=== PATIENT | female | born 1945 | race Caucasian/White ===

== ENCOUNTER 2020-09-10 11:43 | Outpatient (NON) | payer MEDICARE, SELFPAY ==
[2020-09-10 12:15] LABS: Basophils Absolute Auto 0.02 K/mm3 (0.00-0.10); Basophils Percent Auto 0.2 % (0.0-1.0); Hemoglobin 11.4 g/dL (11.7-13.8); Immature Granulocyte Absolute 0.11 K/mm3 (0.00-0.00); Immature Granulocyte Percent A 1.1 % (0.0-0.0); Lymphocytes Absolute Auto 1.22 K/mm3 (1.10-4.50); Lymphocytes Percent Auto 11.8 % (18.0-42.0); Mean Corpuscular HGB Conc 30.8 g/dL (32.0-36.0); Mean Corpuscular Hemoglobin 27.5 pg (27.0-31.0); Mean Corpuscular Volume 89.4 fL (78.0-102.0); Mean Platelet Volume 9.2 fl (9.2-11.8); Monocytes Absolute Auto 0.26 K/mm3 (0.10-0.90); Monocytes Percent Auto 2.5 % (2.0-11.0); Neutrophils Absolute Auto 8.7 K/mm3 (1.7-7.2); Neutrophils Percent Auto 84.4 % (50.0-70.0); Nucleated Red Blood Cells Absolute Auto 0.02 K/mm3 (0.00-0.00); Nucleated Red Blood Cells Perc 0.2 % (0-0.0); Platelet Count Result 343 K/mm3 (150-420); Red Blood Count 4.14 M/mm3 (4.20-5.40); Red Cell Distribution Width 18.3 % (11.6-14.4); White Blood Count 10.3 K/mm3 (4.8-10.8)
[2020-09-10 12:47] LABS: Alanine Aminotransferase 30 U/L (14-59); Albumin Level 2.9 g/dL (3.4-5.0); Alkaline Phosphatase 80 U/L (46-116); Anion Gap 5 mmol/L (8-16); Aspartate Amino Transferase 24 U/L (15-37); Bilirubin,Total 0.4 mg/dL (0.00-1.00); Blood Urea Nitrogen 44 mg/dL (7-18); Calcium 8.8 mg/dL (8.5-10.1); Carbon Dioxide 32 mmol/L (21-32); Chloride 98 mmol/L (98-108); Cholesterol 201 mg/dL (0-200); Estimated Glomerular Filt Rate 36; Glucose 104 mg/dL (70-99); HDL Direct 103 mg/dL (40-60); LDL Cholesterol Calculated 88 mg/dL (<130); Osmolality Calculated 291 mOsm/kg (285-295); Potassium 5.1 mmol/L (3.5-5.1); Sodium 135 mmol/L (136-145); Total Protein 6.1 g/dL (6.4-8.2); Triglycerides 49 mg/dL (0-150)
[2020-09-13 11:58] LABS: Vitamin D 25 Hydroxy 28 ng/mL (30-100)
== END 2020-09-10 11:44 ==
PROVIDERS: Visit Provider Nurse Practitioner Family
DX: Z79.899 Other long term (current) drug therapy (principal); I10 Essential (primary) hypertension
CPT/HCPCS: 36415; 80053; 80061; 82306; 85025

== ENCOUNTER 2020-11-04 11:06 | Inpatient (IN) | payer MEDICARE, MEDICAID, SELFPAY ==
--- NOTE | ~2020-11-04 | MR_ITS ---
EXAMINATION: MR brain/brain stem wo con DATE: 11/06/2020 09:56 INDICATION: Mental status change. TECHNIQUE: Magnetic resonance imaging (MRI) of the brain and brainstem was performed without intraven ous contrast. Sequences included sagittal and axial T1-weighted FSE, axial diffusion-weighted FS EPI, axial T2*-weighted GRE, axial T2-weighted FLAIR Propeller, and axial T2-weighted Propeller. Apparent diffusion coefficient (ADC) maps were created. COMPARISON: Head CT 11/05/2020 FINDINGS: There are scattered areas of nonspecific increased T2-weighted signal intensity in the cere bral white matter, which is within normal limits for the patient's age. There is no intracranial hemo rrhage, acute infarction, or abnormal intracranial mass lesion. The ventricles are normal in size. Th ere is mucosal thickening in the paranasal sinuses. There are likely changes of ocular lens replaceme nt surgeries. The mastoid air cells are normal. IMPRESSION: 1. Normal aging brain. Reviewed, dictated and finalized at location A. R INSTALLER IMPRESSION: 1. Normal aging brain.
--- NOTE | ~2020-11-04 | CT_ITS ---
EXAMINATION: CT brain wo con DATE: 11/05/2020 15:33 INDICATION: Mental status changes. CVA. TECHNIQUE: Computed tomography (CT) of the head was performed without intravenous contrast. The dose- length product was 529.67 mGy-cm. The mA was adjusted according to patient size. Iterative reconstruc tion technique was employed. COMPARISON: None FINDINGS: Mild generalized atrophy. There are scattered mild periventricular and subcortical white ma tter changes, most likely related to small vessel ischemic disease (microangiopathy). Basilar cistern s are patent. There is intracranial atherosclerosis. No acute intracranial hemorrhage, infarction, ma ss or mass effect. Mild mucosal thickening of the ethmoid sinuses. Mastoids are pneumatized. No depre ssed skull fractures. IMPRESSION: 1. No acute intracranial abnormality. 2: Chronic age-related findings. 3: Mild sinus disease. Reviewed, dictated and finalized at location B. RACTIVE MARKETING STRATEGIST
[2020-11-04 11:10] VITALS: BP 129/84; PULSE 76; RESP 18; TEMP 36.6; O2SAT 99
--- NOTE | 2020-11-04 11:22 | ECG_ITS ---
Measurements Intervals [place] Rate: 71 P: 53 UT: 158 QRS: -31 QRSD: 105 T: 34 QT: 415 QTc: 452 Interpretive Statements SINUS RHYTHM VENTRICULAR PREMATURE COMPLEX LEFT AXIS DEVIATION BORDERLINE ST-T WAVE ABNORMALITY- INF/HIGH LAT LEADS BASELINE ARTIFACT- I, III, AVR, AVL ,AVF, V4-V6 BORDERLINE ECG Electronically Signed On 11-04-2020 11:52:24 MANAGER PROGRESSIVE CARE by Good Womack D.O.
[2020-11-04 11:41] LABS: Basophils Absolute Auto 0.03 K/mm3 (0.00-0.10); Basophils Percent Auto 0.2 % (0.0-1.0); Eosinophils Absolute Auto 0.08 K/mm3 (0.02-0.50); Eosinophils Percent Auto 0.6 % (1.0-6.0); Hematocrit 36.5 % (35.0-42.0); Hemoglobin 11.6 g/dL (11.7-13.8); Immature Granulocyte Absolute 0.08 K/mm3 (0.00-0.00); Immature Granulocyte Percent A 0.6 % (0.0-0.0); Lymphocytes Absolute Auto 0.75 K/mm3 (1.10-4.50); Lymphocytes Percent Auto 5.5 % (18.0-42.0); Mean Corpuscular HGB Conc 31.8 g/dL (32.0-36.0); Mean Corpuscular Hemoglobin 28.9 pg (27.0-31.0); Mean Corpuscular Volume 90.8 fL (78.0-102.0); Monocytes Absolute Auto 0.78 K/mm3 (0.10-0.90); Monocytes Percent Auto 5.7 % (2.0-11.0); Neutrophils Percent Auto 87.4 % (50.0-70.0); Nucleated Red Blood Cells Absolute Auto 0.03 K/mm3 (0.00-0.00); Nucleated Red Blood Cells Perc 0.2 % (0-0.0); Platelet Count Result 285 K/mm3 (150-420); Red Blood Count 4.02 M/mm3 (4.20-5.40); Red Cell Distribution Width 19.8 % (11.6-14.4); White Blood Count 13.7 K/mm3 (4.8-10.8)
[2020-11-04 11:57] LABS: BNP 32.9 pg/mL (0-100)
[2020-11-04 11:58] LABS: Add Urine Microscopic? YES; Appearance Urine Sl Cloudy (Clear); Bilirubin Urine Negative (Negative); Blood Urine 2+ (Negative); Color Urine Yellow (Yellow); Glucose Urine UA Negative (Negative); Ketones Urine Negative (Negative); Leukocyte Esterase Ur Negative (Negative); Nitrate Urine Negative (Negative); Protein Urine Negative (Negative); Urobilinogen Urine 0.2 mg/dL (0.2-1.0)
[2020-11-04 12:00] LABS: Alanine Aminotransferase 28 U/L (14-59); Albumin Level 2.9 g/dL (3.4-5.0); Alkaline Phosphatase 78 U/L (46-116); Anion Gap 4 mmol/L (8-16); Aspartate Amino Transferase 36 U/L (15-37); Bilirubin,Total 0.9 mg/dL (0.00-1.00); Blood Urea Nitrogen 37 mg/dL (7-18); Calcium 9.5 mg/dL (8.5-10.1); Carbon Dioxide 42 mmol/L (21-32); Chloride 87 mmol/L (98-108); Estimated CRCL calculation 27 ml/min; Estimated Glomerular Filt Rate 24; Glucose 161 mg/dL (70-99); Magnesium 1.7 mg/dL (1.8-2.4); Osmolality Calculated 287 mOsm/kg (285-295); Sodium 133 mmol/L (136-145); Total Protein 6.9 g/dL (6.4-8.2)
[2020-11-04 12:02] LABS: Potassium 2.5 mmol/L (3.5-5.1)
[2020-11-04 12:03] LABS: Bacteria Urine 4+ /hpf; Squamous Epithelial Cell Urine Rare /hpf (Few); WBC Urine 0-3 /hpf (0-3)
[2020-11-04 12:03] LABS: Troponin I 36.7 ng/L (0.00-60.4)
--- NOTE | 2020-11-04 13:44 | PC.NURSE ---
1230 pt sleeping per cot. 1300 erp in with patient. 1330 pt requesting food and drink. explained no food or drink until doctor reviews labs. sister remains at bedside.
--- NOTE | 2020-11-04 13:53 | PC.NURSE ---
billateral leg dressings removed per dr day for observation. pt to be admitted.
--- NOTE | 2020-11-04 13:54 | PC.NURSE ---
call placed to tire care manager, Kelley Garcia RN. awaiting return call
--- NOTE | 2020-11-04 14:11 | PC.NURSE ---
food provided to pt and sister , per dr day request.
[2020-11-04] MEDS: POTASSIUM CHLORIDE 20 MEQ TABLET 40 MEQ PO ×2 (14:13→23:51)
--- NOTE | 2020-11-04 14:25 | PC.NURSE ---
pt up with minimal assist to bedside wide chair. food tray provided.
[2020-11-04 14:29] VITALS: BP 151/76; PULSE 89; RESP 20; TEMP 36.6; O2SAT 95
--- NOTE | 2020-11-04 14:38 | PC.NURSE ---
ATE ALL FOOD PROVIDED.
--- NOTE | 2020-11-04 14:38 | PC.NURSE ---
PT TRANSPORTED TO ROOM 227 PER WHEELCHAIR WITH SHADI BROWNING. PT ALERT AND STABLE . DEPARTS WITH ALL PERSONAL BELONGINGS.
--- NOTE | 2020-11-04 14:45 | PC.NURSE ---
Patient arrived from ED per wheelchair. ABle to transfer to bed with assist. Oriented to room and call light.
[2020-11-04 15:15] VITALS: PULSE 78
[2020-11-04] MEDS: PHARMACIST COMMUNICATION ORDER 1 EACH XX (15:40)
[2020-11-04 16:00] VITALS: BP 133/65; PULSE 78; PULSE 80; RESP 20; TEMP 36.1; O2SAT 95
[2020-11-04] MEDS: MAGNESIUM SULF 2 GM/WATER 50ML 2 GM/50 ML BAG IVPB (18:54)
[2020-11-04 20:00] VITALS: PULSE 82
--- NOTE | 2020-11-04 22:13 | PC.NURSE ---
Patient up to bedside commode with walker and assist of 1. large BM. SOB with exertion. Patient expressed concern about stay at hospital. She has been accepted at [facility] in [place]. She was at doctor for physical when she was sent to ER. She is concerned about status of her placement with this hospitalization
[2020-11-05] VITALS: BP 111/66; PULSE 62; PULSE 74; RESP 16; TEMP 36.4; O2SAT 96
--- NOTE | 2020-11-05 02:16 | PC.NURSE ---
Patient complaining of itching. Observed chest area is red and rash to back and legs. Doctor notified.
[2020-11-05] MEDS: DEXAMETHASONE SOD PHOS INJ 4 MG/ML VIAL 10 MG IV PUSH (02:35)
[2020-11-05] MEDS: diphenhydrAMINE HCl INJ 50 MG/ML VIAL IV PUSH (02:36)
--- NOTE | 2020-11-05 03:30 | ED.LOWEXIN ---
HPI - Extremity Injury (Lower) General Source: patient and family Mode of arrival: ambulatory Limitations: no limitations History of Present Illness HPI Narrative: Patient is brought in by sister. She complains of feeling weak and believing she has once again developed cellulitis in her lower legs. She has been getting weaker over a period of days she says. Related Data Home Medications Medication Instructions Recorded Confirmed Lactobacillus acidophilus 10 mg PO DAILY 09/10/20 11/04/20 duloxetine 60 mg capsule,delayed 60 mg PO DAILY 09/10/20 11/04/20 release lovastatin 40 mg tablet 40 mg PO QPM 09/10/20 11/04/20 montelukast 10 mg tablet 10 mg PO DAILY 09/10/20 11/04/20 omeprazole 40 mg capsule,delayed 40 mg PO DAILY 09/10/20 11/04/20 release oxybutynin chloride 10 mg 10 mg PO DAILY 09/10/20 11/04/20 tablet,extended release 24 hr prednisone 5 mg tablet 5 mg PO BID 09/10/20 11/04/20 potassium chloride 20 mEq 20 meq PO BID tablet 10/07/20 11/04/20 tablet,extended release acetaminophen-codeine 300 tablet PO TID 11/04/20 11/04/20 Allergies Allergy/AdvReac Type Severity Reaction Status Date / Time Sulfa (Sulfonamide Allergy Severe Weakness Verified 11/04/20 08:01 Antibiotics) Review of Systems Constitutional: Comments: no fever no chills Eyes: Eyes: Reports no additional eye complaints ENT: Reports system reviewed and no additional complaints, except as documented Cardiovascular: Cardiovascular: Reports no additional cardiovascular complaints Respiratory: Respiratory: Reports no additional respiratory complaints Gastrointestinal: Gastrointestinal: Reports no additional gastrointestinal complaints Genitourinary: Genitourinary: Reports no additional female genitourinary complaints Musculoskeletal: Musculoskeletal: Reports no additional musculoskeletal complaints Integumentary/Breasts: Skin/Breast: Reports system reviewed and no additional complaints, except as docu Neurologic: Reports system reviewed and no additional complaints, except as documented Psychiatric: Psychiatric: Reports no additional psychiatric complaints Endocrine: Endocrine: Reports no additional endocrine complaints Hematologic/Lymphatic: Hematologic/Lymphatic: Reports no additional hematologic/lymphatic complaints Allergic/Immunologic: Allergic/Immunologic: Reports no additional allergic/immunologic complaints PMFSH Past Medical History Medical History Afib Cellulitis Surgical History Surgical History H/O removal of cyst History of partial hysterectomy Total knee replacement status Social History Social History Smoking packs per day: 1 Smoking cigarettes per day: 20.0 Years smoked: 30 Smoking pack-years: 30.00 Smoking status: Former smoker Tobacco type: cigarettes Alcohol intake: never Substance use: never Gender identity (if verbalized by the patient): Female Sexual Orientation (if Verbalized by the Patient): Straight or Heterosexual Spiritual care concerns: No Exam Const: General: no acute distress Orientation/consciousness: patient oriented x3 HENMT: Head: normal to inspection Ears: external ears normal and TM's normal bilaterally Mouth: Yes moist mucous membranes Throat: posterior oropharynx normal Eyes: Conjunctivae: conjunctivae normal Neck: Neck: normal visual inspection and no lymphadenopathy Chest: Chest palpation & inspection: normal inspection of the chest Resp: Effort & Inspection: normal respiratory effort Auscultation: clear to auscultation bilaterally Cardio: Rate: regular rate Rhythm: regular rhythm GI: GI Palp: Yes Soft to palpation (nontender) Back/Spine/Pelvis: Back: no CVA tenderness Skin: General skin exam: normal color Neuro: General: patient oriented x3 and moves all extremities Extrem: Oth
[2020-11-05 04:00] VITALS: PULSE 64
--- NOTE | 2020-11-05 05:30 | PC.NURSE ---
Patient up to bedside commode with assist of 1 and walker. Requested to sit up in bedside chair. Placed in chair with BLE elevated.
[2020-11-05 05:59] LABS: Anion Gap 4 mmol/L (8-16); Blood Urea Nitrogen 39 mg/dL (7-18); Calcium 9.4 mg/dL (8.5-10.1); Carbon Dioxide 41 mmol/L (21-32); Chloride 89 mmol/L (98-108); Estimated CRCL calculation 29 ml/min; Estimated Glomerular Filt Rate 25; Glucose 140 mg/dL (70-99); Magnesium 2.6 mg/dL (1.8-2.4); Osmolality Calculated 289 mOsm/kg (285-295); Potassium 3.4 mmol/L (3.5-5.1); Sodium 134 mmol/L (136-145)
[2020-11-05 08:00] VITALS: BP 138/73; PULSE 72; PULSE 80; RESP 20; TEMP 36.7; O2SAT 94
[2020-11-05] MEDS: DULoxetine HCL 30 MG CAPSULE.DR 60 MG PO (09:43)
[2020-11-05] MEDS: CHOLECALCIFEROL 1,000 UNITS TABLET 1000 UNITS PO (09:43)
[2020-11-05] MEDS: ARIPiprazole 2 MG TABLET PO (09:43)
[2020-11-05] MEDS: metOLazone 2.5 MG TABLET PO (09:43)
[2020-11-05] MEDS: MONTELUKAST SODIUM 10 MG TABLET PO (09:43)
[2020-11-05] MEDS: POTASSIUM CHLORIDE 20 MEQ TABLET PO ×2 (09:44→17:11)
[2020-11-05] MEDS: SACCHAROMYCES BOULARDII 250 MG CAPSULE PO (09:44)
[2020-11-05] MEDS: ACETAMINOPHEN/CODEINE ELIXIR (*CRX) 120-12 MG/5 ML UDC 10 ML PO ×2 (09:44→14:01)
[2020-11-05] MEDS: PHARMACIST COMMUNICATION ORDER 1 EACH XX ×2 (09:45)
[2020-11-05 11:16] LABS: Lactic Acid Reflex 2.7 mmol/L (0.4-2.0)
[2020-11-05 13:50] LABS: Reflex Lactic Acid Yes or No Add Lactic
--- NOTE | 2020-11-05 14:24 | PM.IMHP ---
H&P: HPI History of Present Illness Date/Time: 11/05/20 14:24 Chief Complaint: Fatigue/weakness/mental status change/cellulitis Narrative: Leyda Arriaga is a 75 year old female who presented to our ED with complaints of weakness, fatigue and mental status change. Patient has a past medical history of A. fib, cellulitis of the lower extremities and polymyalgia. According to patient and her sister a home health assist noticed that the patient appeared to be more weak fatigued and change in speech. According to patient and her sister she has been receiving treatment for cellulitis since July. Patient's WBC 13.7, sodium 13 3, potassium 2.5 on admission, creatinine 0.05 BUN 37, lactic acid 2.7, magnesium 1.7 UA, blood culture pending, sinus rhythm with a heart rate of 71, BNP 32.9. The patient denies SOB, CP, palpitation, extremity numbness, lightheadedness, dizziness, constipation, diarrhea, chills, or fever. Review of Systems Review of Systems: All systems reviewed & are unremarkable except as noted in HPI and below (10 point system review) PMFSH Past Medical History Medical History Afib Cellulitis Surgical History Surgical History H/O removal of cyst History of partial hysterectomy Total knee replacement status Social History Social History Smoking packs per day: 1 Smoking cigarettes per day: 20.0 Years smoked: 30 Smoking pack-years: 30.00 Smoking status: Former smoker Tobacco type: cigarettes Alcohol intake: never Substance use: never Gender identity (if verbalized by the patient): Female Spiritual care concerns: No Meds Home Medications and Allergies Home Medications Medication Instructions Recorded Confirmed Type Lactobacillus acidophilus 10 mg PO DAILY 09/10/20 11/04/20 History duloxetine 60 mg capsule,delayed 60 mg PO DAILY 09/10/20 11/04/20 History release lovastatin 40 mg tablet 40 mg PO QPM 09/10/20 11/04/20 History montelukast 10 mg tablet 10 mg PO DAILY 09/10/20 11/04/20 History omeprazole 40 mg capsule,delayed 40 mg PO DAILY 09/10/20 11/04/20 History release oxybutynin chloride 10 mg 10 mg PO DAILY 09/10/20 11/04/20 History tablet,extended release 24 hr prednisone 5 mg tablet 5 mg PO BID 09/10/20 11/04/20 History aripiprazole 2 mg tablet 2 mg PO DAILY #30 tablet 10/07/20 11/04/20 Rx cholecalciferol (vitamin D3) 25 25 mcg PO DAILY #90 cap 10/07/20 11/04/20 Rx mcg (1,000 unit) capsule potassium chloride 20 mEq 20 meq PO BID tablet 10/07/20 11/04/20 History tablet,extended release furosemide 20 mg tablet 20 mg PO BID #60 tablet 10/22/20 11/04/20 Rx metolazone 2.5 mg tablet 2.5 mg PO DAILY #30 tablet 10/31/20 11/04/20 Rx acetaminophen-codeine 300 tablet PO TID 11/04/20 11/04/20 History Allergies Allergy/AdvReac Type Severity Reaction Status Date / Time Sulfa (Sulfonamide Allergy Severe Weakness Verified 11/04/20 08:01 Antibiotics) Vital Signs Vital Signs - 24 hr 11/04/20 14:29 11/04/20 15:15 11/04/20 16:00 Temperature 97.8 F 97 F L Pulse Rate 89 78 78 Respiratory Rate 20 20 Blood Pressure 151/76 H 133/65 Pulse Oximetry 95 95 11/04/20 20:00 11/05/20 00:00 11/05/20 04:00 Temperature 97.6 F Pulse Rate 82 62 64 Respiratory Rate 16 Blood Pressure 111/66 Pulse Oximetry 96 11/05/20 08:00 Temperature 98.1 F Pulse Rate 72 Respiratory Rate 20 Blood Pressure 138/73 Pulse Oximetry 94 Exam Narrative: Exam Narrative: GENERAL: Obese, in no apparent distress. HEAD: normocephalic, atraumatic. EYES: PERRL. Sclera clear/white. Vision is grossly intact. right eye pinpoint patient prescribed narcotics. Right eye dilated according to patient she had cataract surgery that went wrong. EARS: External ears normal, auditory canals clear and without drainage, TMs normal without perforation
[2020-11-05 14:27] LABS: Lactic Acid 2.3 mmol/L (0.4-2.0)
[2020-11-05 15:56] VITALS: BP 140/75; PULSE 71; RESP 18; TEMP 36.1; O2SAT 95
[2020-11-05] MEDS: SODIUM CHLORIDE 0.9% IV 1,000 ML 75 ML IV CONT (16:23)
--- NOTE | 2020-11-05 16:39 | PC.NURSE ---
Assisted to chair and legs elevated, call light in reach of patient
[2020-11-05] MEDS: LOVASTATIN 20 MG TABLET 40 MG PO (17:12)
--- NOTE | 2020-11-05 18:03 | PC.NURSE ---
SBA used to get from chair to BSC, used walker, slow to move, denies needs, no distress noted, cooperative with care
[2020-11-05 23:41] VITALS: BP 139/61; PULSE 70; RESP 20; TEMP 36.6; O2SAT 97
[2020-11-06] MEDS: SODIUM CHLORIDE 0.9% IV 1,000 ML 75 ML IV CONT (03:40)
[2020-11-06 06:09] LABS: Partial Thromboplastin Time 25.3 SEC (23.90-30.70); Prothrombin Time 10.9 Seconds (9.50-12.10)
[2020-11-06 06:12] LABS: Troponin I 21.3 ng/L (0.00-60.4)
[2020-11-06 08:00] VITALS: BP 142/75; PULSE 66; RESP 20; TEMP 36.2; O2SAT 98
[2020-11-06 08:17] LABS: Hematocrit 31.4 % (35.0-42.0); Hemoglobin 10.1 g/dL (11.7-13.8); Mean Corpuscular HGB Conc 32.2 g/dL (32.0-36.0); Mean Corpuscular Volume 90.2 fL (78.0-102.0); Mean Platelet Volume 9.5 fl (9.2-11.8); Platelet Count Result 295 K/mm3 (150-420); Red Blood Count 3.48 M/mm3 (4.20-5.40); Red Cell Distribution Width 18.8 % (11.6-14.4); White Blood Count 9.2 K/mm3 (4.8-10.8)
[2020-11-06 08:47] LABS: Lactic Acid Reflex 1.4 mmol/L (0.4-2.0)
[2020-11-06] MEDS: CHOLECALCIFEROL 1,000 UNITS TABLET 1000 UNITS PO (10:00)
[2020-11-06] MEDS: POTASSIUM CHLORIDE 20 MEQ TABLET PO ×2 (10:00→17:01)
[2020-11-06] MEDS: SACCHAROMYCES BOULARDII 250 MG CAPSULE PO (10:01)
[2020-11-06] MEDS: MONTELUKAST SODIUM 10 MG TABLET PO (10:01)
[2020-11-06] MEDS: DULoxetine HCL 30 MG CAPSULE.DR 60 MG PO (10:01)
[2020-11-06] MEDS: ARIPiprazole 2 MG TABLET PO (10:01)
--- NOTE | 2020-11-06 12:48 | P.PN_ITS ---
Progress Note: A&P Assessment and Plan (1) AMS (altered mental status): Code(s): R41.82 - Altered mental status, unspecified <Britni Lo GISELE-C - Last Filed: 11/06/20 13:06> Status: Acute <Britni Lo MINAC - Last Filed: 11/06/20 13:06> Assessment and Plan: * Possibly secondary to infection * Lactic acid elevated 2.7 now 1.4 * Continue vancomycin managed by pharmacy stopped cefepime to prevent C. difficile * CT of the head unremarkable, MRI unremarkable * <Britni Lo GISELE-C - Last Filed: 11/06/20 13:06> (2) Cellulitis: Qualifiers: Laterality: unspecified laterality Site of cellulitis: extremity Site of cellulitis of extremity: lower extremity Qualified Code(s): L03.119 - Cellulitis of unspecified part of limb <Britni Lo TORCH STRAIGHTENERJoseC - Last Filed: 11/06/20 13:06> Code(s): L03.90 - Cellulitis, unspecified <Britni Lo GISELE-C - Last Filed: 11/06/20 13:06> Status: Acute <Britni Lo GISELE-C - Last Filed: 11/06/20 13:06> Assessment and Plan: * Continue vancomycin * Culture preliminary no growth * WBCs within normal limits * Lactic acid within normal limit * Patient has home health nurse come to her house to care for lower extremity cellulitis that she has been dealing with since July <Britni oL MINABeau - Last Filed: 11/06/20 13:06> (3) Acute hypokalemia: Code(s): E87.6 - Hypokalemia <Britni Lo GISELE-C - Last Filed: 11/06/20 13:06> Status: Acute <Britni Lo TORCH STRAIGHTENERJoseBeau - Last Filed: 11/06/20 13:06> Assessment and Plan: * Potassium on admission 2.5 currently 3.4 * Continue supplements <Britni MarkDeepthi Lo TORCH STRAIGHTENER-Beau - Last Filed: 11/06/20 13:06> (4) shelter current use of diuretic: Code(s): Z79.899 - Other penitentiary (current) drug therapy <Britni Powell GISELE Lo-C - Last Filed: 11/06/20 13:06> Status: Acute <Britni LoGISELE-C - Last Filed: 11/06/20 13:06> Assessment and Plan: * Restarted Lasix <Guillecarlos eduardo JasGISELE Reid-C - Last Filed: 11/06/20 13:06> (5) XIN (generalized anxiety disorder): Code(s): F41.1 - Generalized anxiety disorder <Britni MarkGISELE Reid-C - Last Filed: 11/06/20 13:06> Status: Acute <Britni Powell GISELE Lo-C - Last Filed: 11/06/20 13:06> Assessment and Plan: * As needed Lasix <Britni MarkGISELE Reid-C - Last Filed: 11/06/20 13:06> (6) Afib: Code(s): I48.91 - Unspecified atrial fibrillation <Britni MarkGISELE Reid-C - Last Filed: 11/06/20 13:06> Status: Acute <Britni MarkGISELE Reid-C - Last Filed: 11/06/20 13:06> Assessment and Plan: * Controlled * Patient not on any home medication <Britni MarkGISELE Reid-C - Last Filed: 11/06/20 13:06> (7) COPD (chronic obstructive pulmonary disease): Onset Date: 02/13/13 <MINA CurtisC - Last Filed: 11/06/20 13:06> Code(s): J44.9 - Chronic obstructive pulmonary disease, unspecified <Britni MarkGISELE Reid-C - Last Filed: 11/06/20 13:06> Status: Acute <Guillecarlos eduardo JasGISELE Reid-Beau - Last Filed: 11/06/20 13:06> Assessment and Plan: * Continue albuterol as needed * Continue Singulair <GISELE Curtis-C - Last Filed: 11/06/20 13:06> (8) Essential (primary) hypertension: Onset Date: 02/13/13 <RANGEL Curtis - Last Filed: 11/06/20 13:06> Code(s): I10 - Essential (primary) hypertension <RANGEL Curtis - Last Filed: 11/06/20 13:06> Status:
--- NOTE | 2020-11-06 12:48 | WPDPN ---
Progress Note: A&P Assessment and Plan (1) AMS (altered mental status): Code(s): R41.82 - Altered mental status, unspecified <Britni Lo TRAFFIC LAW ATTORNEYJoseC - Last Filed: 11/06/20 13:06> Status: Acute <Britni Lo MINAC - Last Filed: 11/06/20 13:06> Assessment and Plan: Possibly secondary to infection Lactic acid elevated 2.7 now 1.4 Continue vancomycin managed by pharmacy stopped cefepime to prevent C. difficile CT of the head unremarkable, MRI unremarkable <Britni Lo TRAFFIC LAW ATTORNEY-C - Last Filed: 11/06/20 13:06> (2) Cellulitis: Qualifiers: Laterality: unspecified laterality Site of cellulitis: extremity Site of cellulitis of extremity: lower extremity Qualified Code(s): L03.119 - Cellulitis of unspecified part of limb <Britni MarkDeepthi Lo TRAFFIC LAW ATTORNEYJoseC - Last Filed: 11/06/20 13:06> Code(s): L03.90 - Cellulitis, unspecified <Britni MarkDeepthi Lo TRAFFIC LAW ATTORNEY-C - Last Filed: 11/06/20 13:06> Status: Acute <Britni Lo GISELE-C - Last Filed: 11/06/20 13:06> Assessment and Plan: Continue vancomycin Culture preliminary no growth WBCs within normal limits Lactic acid within normal limit Patient has home health nurse come to her house to care for lower extremity cellulitis that she has been dealing with since July <Guillecarlos eduardo Lo TRAFFIC LAW ATTORNEY-C - Last Filed: 11/06/20 13:06> (3) Acute hypokalemia: Code(s): E87.6 - Hypokalemia <Britni MarkDeepthi Lo TRAFFIC LAW ATTORNEY-C - Last Filed: 11/06/20 13:06> Status: Acute <Guillecarlos eduardo JasDeepthi Lo TRAFFIC LAW ATTORNEY-Beau - Last Filed: 11/06/20 13:06> Assessment and Plan: Potassium on admission 2.5 currently 3.4 Continue supplements <Guillecarlos eduardo JasDeepthi Lo TRAFFIC LAW ATTORNEY-C - Last Filed: 11/06/20 13:06> (4) manager intermediate current use of diuretic: Code(s): Z79.899 - Other middle or intermediate school principal (current) drug therapy <Britni MarkGISELE Reid-C - Last Filed: 11/06/20 13:06> Status: Acute <Britni MarkRANGEL Reid - Last Filed: 11/06/20 13:06> Assessment and Plan: Restarted Lasix <Britni MarkGISELE Reid-C - Last Filed: 11/06/20 13:06> (5) XIN (generalized anxiety disorder): Code(s): F41.1 - Generalized anxiety disorder <Britni MarkMINA ReidC - Last Filed: 11/06/20 13:06> Status: Acute <Guillecarlos eduardo JasGISELE Reid-Beau - Last Filed: 11/06/20 13:06> Assessment and Plan: As needed Lasix <Guillecarlos eduardo JasMINA ReidC - Last Filed: 11/06/20 13:06> (6) Afib: Code(s): I48.91 - Unspecified atrial fibrillation <RANGEL Curtis - Last Filed: 11/06/20 13:06> Status: Acute <Britni MarkGISELE Reid-C - Last Filed: 11/06/20 13:06> Assessment and Plan: Controlled Patient not on any home medication <GuilleRANGEL Romano - Last Filed: 11/06/20 13:06> (7) COPD (chronic obstructive pulmonary disease): Onset Date: 02/13/13 <RANGEL Curtis - Last Filed: 11/06/20 13:06> Code(s): J44.9 - Chronic obstructive pulmonary disease, unspecified <Britni MarkRANGEL Reid - Last Filed: 11/06/20 13:06> Status: Acute <RANGEL Curtis - Last Filed: 11/06/20 13:06> Assessment and Plan: Continue albuterol as needed Continue Singulair <GuilleGISELE Romano-C - Last Filed: 11/06/20 13:06> (8) Essential (primary) hypertension: Onset Date: 02/13/13 <GISELE Curtis-Beau - Last Filed: 11/06/20 13:06> Code(s): I10 - Essential (primary) hypertension <RANGEL Curtis - Last Filed: 11/06/20 13:06> Status: Acute <RANGEL Curtis - Last Filed: 11/06/20 13:06> Assessment and Plan: Stable Patient currently not on any home medication Vital signs as ordered Will order blood pressure medication if needed <RANGEL Curtis - Last Filed: 11/06/20 13:06> (9) Polymyalgia rheumatica: Onset Date: 02/13/13 <Britni Lo
[2020-11-06 13:33] LABS: Alanine Aminotransferase 24 U/L (14-59); Albumin Level 2.5 g/dL (3.4-5.0); Alkaline Phosphatase 76 U/L (46-116); Anion Gap 2 mmol/L (8-16); Aspartate Amino Transferase 20 U/L (15-37); Bilirubin,Total 0.4 mg/dL (0.00-1.00); Blood Urea Nitrogen 35 mg/dL (7-18); Carbon Dioxide 38 mmol/L (21-32); Chloride 91 mmol/L (98-108); Estimated CRCL calculation 43 ml/min; Estimated Glomerular Filt Rate 40; Glucose 118 mg/dL (70-99); Magnesium 2.4 mg/dL (1.8-2.4); Osmolality Calculated 281 mOsm/kg (285-295); Potassium 3.7 mmol/L (3.5-5.1); Sodium 131 mmol/L (136-145); Total Protein 6.3 g/dL (6.4-8.2)
[2020-11-06 16:00] VITALS: BP 141/98; PULSE 81; RESP 18; TEMP 35.9; O2SAT 99
[2020-11-06] MEDS: LOVASTATIN 20 MG TABLET 40 MG PO (17:00)
[2020-11-06] MEDS: FUROSEMIDE 20 MG TABLET PO (17:00)
[2020-11-06] MEDS: LORazepam INJ (*CRX) 2 MG/ML VIAL 0.5 MG IV PUSH (20:50)
[2020-11-06] MEDS: diphenhydrAMINE HCl INJ 50 MG/ML VIAL IV PUSH (20:50)
[2020-11-07] VITALS: BP 120/69; PULSE 78; RESP 18; TEMP 36.2; O2SAT 95
--- NOTE | 2020-11-07 00:15 | PC.NURSE ---
Patient sleeping. No distress noted. Call light and needed items within reach.
--- NOTE | 2020-11-07 03:30 | PC.NURSE ---
Patient sleeping. Call light and needed items within reach.
[2020-11-07 05:44] LABS: Hematocrit 31.8 % (35.0-42.0); Mean Corpuscular HGB Conc 31.4 g/dL (32.0-36.0); Mean Corpuscular Hemoglobin 28.5 pg (27.0-31.0); Mean Corpuscular Volume 90.6 fL (78.0-102.0); Platelet Count Result 270 K/mm3 (150-420); Red Blood Count 3.51 M/mm3 (4.20-5.40); Red Cell Distribution Width 19.1 % (11.6-14.4); White Blood Count 9.5 K/mm3 (4.8-10.8)
[2020-11-07 05:55] LABS: Alanine Aminotransferase 20 U/L (14-59); Albumin Level 2.4 g/dL (3.4-5.0); Alkaline Phosphatase 72 U/L (46-116); Anion Gap 6 mmol/L (8-16); Aspartate Amino Transferase 24 U/L (15-37); Bilirubin,Total 0.3 mg/dL (0.00-1.00); Blood Urea Nitrogen 37 mg/dL (7-18); Calcium 8.6 mg/dL (8.5-10.1); Carbon Dioxide 35 mmol/L (21-32); Chloride 94 mmol/L (98-108); Estimated CRCL calculation 46 ml/min; Estimated Glomerular Filt Rate 44; Glucose 89 mg/dL (70-99); Osmolality Calculated 287 mOsm/kg (285-295); Potassium 3.3 mmol/L (3.5-5.1); Sodium 135 mmol/L (136-145); Total Protein 5.4 g/dL (6.4-8.2)
[2020-11-07 08:00] VITALS: BP 115/55; PULSE 86; RESP 20; TEMP 36.3; O2SAT 95
--- NOTE | 2020-11-07 08:22 | P.DS_ITS ---
DS: Admitting Diagnosis Admitting Diagnosis Admitting Diagnosis: Cellulitis hypokalemia DS: Discharge Diagnosis Discharge Diagnosis (1) AMS (altered mental status): Code(s): R41.82 - Altered mental status, unspecified Status: Acute Assessment and Plan: * Possibly secondary to infection * Lactic acid elevated 2.7 now 1.4 * Continue vancomycin managed by pharmacy stopped cefepime to prevent C. difficile, patient developed rash with the use of Zosyn * CT of the head unremarkable, MRI unremarkable * Will discharge home with doxycycline (2) Cellulitis: Qualifiers: Laterality: unspecified laterality Site of cellulitis: extremity Site of cellulitis of extremity: lower extremity Qualified Code(s): L03.119 - Cellulitis of unspecified part of limb Code(s): L03.90 - Cellulitis, unspecified Status: Acute Assessment and Plan: * Will discharge home with doxycycline * Culture preliminary no growth * WBCs within normal limits * Lactic acid within normal limit * Patient has home health nurse come to her house to care for lower extremity cellulitis that she has been dealing with since July (3) Acute hypokalemia: Code(s): E87.6 - Hypokalemia Status: Acute Assessment and Plan: * Potassium on admission 2.5 currently 3.3 * Continue supplements (4) terminal make up operator current use of diuretic: Code(s): Z79.899 - Other shelter (current) drug therapy Status: Acute Assessment and Plan: * Continue Lasix (5) XIN (generalized anxiety disorder): Code(s): F41.1 - Generalized anxiety disorder Status: Acute Assessment and Plan: * Continue home meds (6) Afib: Code(s): I48.91 - Unspecified atrial fibrillation Status: Acute Assessment and Plan: * Controlled * Patient not on any home medication (7) COPD (chronic obstructive pulmonary disease): Onset Date: 02/13/13 Code(s): J44.9 - Chronic obstructive pulmonary disease, unspecified Status: Acute Assessment and Plan: * Continue Singulair (8) Essential (primary) hypertension: Onset Date: 02/13/13 Code(s): I10 - Essential (primary) hypertension Status: Acute Assessment and Plan: * Stable * Continue lisinopril * (9) Polymyalgia rheumatica: Onset Date: 02/13/13 Code(s): M35.3 - Polymyalgia rheumatica Status: Acute Assessment and Plan: * Continue prednisone. Patient prednisone has been decreased to 5 mg daily. She will need to follow-up with her primary care physician to taper prednisone off (10) Acute kidney injury: Code(s): N17.9 - Acute kidney failure, unspecified Status: Acute Assessment and Plan: * On admission BUN and creatinine 37 and 2.05 on discharge 37/1.19 improving * Possibly secondary to infection versus diuretics * Improving (11) Hypomagnesemia: Code(s): E83.42 - Hypomagnesemia Status: Acute Assessment and Plan: * On admission magnesium 1.7 now within normal limits * Supplement given * We will continue to monitor (12) Peripheral edema: Code(s): R60.9 - Edema, unspecified Status: Acute Assessment and Plan: * Continue home medication DS: Summary Hospital Course Hospital Course: Leyda Arriaga is a 75 year old female who presented to our ED with complaints of weakness, fatigue and mental status change. Patient has a past medical history of A. fib, cellulitis of the lower extremiti
--- NOTE | 2020-11-07 08:22 | PM.DS ---
DS: Admitting Diagnosis Admitting Diagnosis Admitting Diagnosis: Cellulitis hypokalemia DS: Discharge Diagnosis Discharge Diagnosis (1) AMS (altered mental status): Code(s): R41.82 - Altered mental status, unspecified Status: Acute Assessment and Plan: Possibly secondary to infection Lactic acid elevated 2.7 now 1.4 Continue vancomycin managed by pharmacy stopped cefepime to prevent C. difficile, patient developed rash with the use of Zosyn CT of the head unremarkable, MRI unremarkable Will discharge home with doxycycline (2) Cellulitis: Qualifiers: Laterality: unspecified laterality Site of cellulitis: extremity Site of cellulitis of extremity: lower extremity Qualified Code(s): L03.119 - Cellulitis of unspecified part of limb Code(s): L03.90 - Cellulitis, unspecified Status: Acute Assessment and Plan: Will discharge home with doxycycline Culture preliminary no growth WBCs within normal limits Lactic acid within normal limit Patient has home health nurse come to her house to care for lower extremity cellulitis that she has been dealing with since July (3) Acute hypokalemia: Code(s): E87.6 - Hypokalemia Status: Acute Assessment and Plan: Potassium on admission 2.5 currently 3.3 Continue supplements (4) long term acute care registered nurse current use of diuretic: Code(s): Z79.899 - Other intermediate (current) drug therapy Status: Acute Assessment and Plan: Continue Lasix (5) XIN (generalized anxiety disorder): Code(s): F41.1 - Generalized anxiety disorder Status: Acute Assessment and Plan: Continue home meds (6) Afib: Code(s): I48.91 - Unspecified atrial fibrillation Status: Acute Assessment and Plan: Controlled Patient not on any home medication (7) COPD (chronic obstructive pulmonary disease): Onset Date: 02/13/13 Code(s): J44.9 - Chronic obstructive pulmonary disease, unspecified Status: Acute Assessment and Plan: Continue Singulair (8) Essential (primary) hypertension: Onset Date: 02/13/13 Code(s): I10 - Essential (primary) hypertension Status: Acute Assessment and Plan: Stable Continue lisinopril (9) Polymyalgia rheumatica: Onset Date: 02/13/13 Code(s): M35.3 - Polymyalgia rheumatica Status: Acute Assessment and Plan: Continue prednisone. Patient prednisone has been decreased to 5 mg daily. She will need to follow-up with her primary care physician to taper prednisone off (10) Acute kidney injury: Code(s): N17.9 - Acute kidney failure, unspecified Status: Acute Assessment and Plan: On admission BUN and creatinine 37 and 2.05 on discharge 37/1.19 improving Possibly secondary to infection versus diuretics Improving (11) Hypomagnesemia: Code(s): E83.42 - Hypomagnesemia Status: Acute Assessment and Plan: On admission magnesium 1.7 now within normal limits Supplement given We will continue to monitor (12) Peripheral edema: Code(s): R60.9 - Edema, unspecified Status: Acute Assessment and Plan: Continue home medication DS: Summary Hospital Course Hospital Course: Leyda Arriaga is a 75 year old female who presented to our ED with complaints of weakness, fatigue and mental status change. Patient has a past medical history of A. fib, cellulitis of the lower extremities and polymyalgia. According to patient and her sister a home health clinical trials assistant noticed that the patient appeared to be more weak,fatigued and change in speech. According to patient and her sister she has been receiving treatment for cellulitis since July. Patient was admitted here for cellulitis, sepsis, hypokalemia and to rule out CVA. During this admission patient was treated with vancomycin and Zosyn. Zosyn was discontinued due to a reported allergic reaction. Acco
[2020-11-07] MEDS: DULoxetine HCL 30 MG CAPSULE.DR 60 MG PO (10:04)
[2020-11-07] MEDS: CHOLECALCIFEROL 1,000 UNITS TABLET 1000 UNITS PO (10:04)
[2020-11-07] MEDS: MONTELUKAST SODIUM 10 MG TABLET PO (10:04)
[2020-11-07] MEDS: POTASSIUM CHLORIDE 20 MEQ TABLET PO ×2 (10:05→17:09)
[2020-11-07] MEDS: FUROSEMIDE 20 MG TABLET PO ×2 (10:05→17:09)
[2020-11-07] MEDS: FOLIC ACID 1 MG TABLET PO (10:05)
[2020-11-07] MEDS: lisinopriL 5 MG TABLET PO (10:05)
[2020-11-07] MEDS: ARIPiprazole 2 MG TABLET PO (10:05)
[2020-11-07] MEDS: predniSONE 5 MG TABLET PO (10:05)
[2020-11-07] MEDS: SACCHAROMYCES BOULARDII 250 MG CAPSULE PO (10:06)
--- NOTE | 2020-11-07 10:56 | PC.NURSE ---
SBA up to commode from chair, no assistance needed, voided and returned to chair, did assist with tiffany care, call light and personal items in reach of patient
[2020-11-07] MEDS: ENOXAPARIN 30 MG/0.3 ML SYRINGE SUB-Q (13:31)
[2020-11-07 15:59] LABS: SARS-CoV-2 Ag Negative (Negative)
[2020-11-07 16:00] VITALS: PULSE 84; RESP 18; TEMP 36.8; O2SAT 100
[2020-11-07] MEDS: LOVASTATIN 20 MG TABLET 40 MG PO (17:09)
[2020-11-07] MEDS: DOXYCYCLINE HYCLATE 100 MG TABLET PO (20:33)
[2020-11-08] VITALS: BP 112/58; PULSE 70; RESP 16; TEMP 36.1; O2SAT 96
--- NOTE | 2020-11-08 01:52 | PC.NURSE ---
Patient put light on incontinent of bowel and bladder in bed Up to commode. would not try to perform self care. wanted assistance with all care. Requested to sit up in bedside commode
[2020-11-08 08:00] VITALS: BP 106/57; PULSE 80; RESP 18; TEMP 36.2; O2SAT 97
[2020-11-08] MEDS: MONTELUKAST SODIUM 10 MG TABLET PO (09:20)
[2020-11-08] MEDS: lisinopriL 5 MG TABLET PO (09:20)
[2020-11-08] MEDS: FOLIC ACID 1 MG TABLET PO (09:21)
[2020-11-08] MEDS: CHOLECALCIFEROL 1,000 UNITS TABLET 1000 UNITS PO (09:21)
[2020-11-08] MEDS: POTASSIUM CHLORIDE 20 MEQ TABLET 40 MEQ PO (09:21)
[2020-11-08] MEDS: DOXYCYCLINE HYCLATE 100 MG TABLET PO (09:21)
[2020-11-08] MEDS: DULoxetine HCL 30 MG CAPSULE.DR 60 MG PO (09:21)
[2020-11-08] MEDS: predniSONE 5 MG TABLET PO (09:22)
[2020-11-08] MEDS: ARIPiprazole 2 MG TABLET PO (09:22)
[2020-11-08] MEDS: SACCHAROMYCES BOULARDII 250 MG CAPSULE PO (09:22)
[2020-11-08] MEDS: FUROSEMIDE 20 MG TABLET PO (09:22)
[2020-11-08] MEDS: POTASSIUM CHLORIDE 20 MEQ TABLET PO (09:23)
[2020-11-08] MEDS: ACETAMINOPHEN 500 MG TABLET 1000 MG PO (09:23)
--- NOTE | 2020-11-08 11:07 | PC.NURSE ---
Report called to [facility]. Nurse Anita
--- NOTE | 2020-11-08 11:09 | P.DS_ITS ---
DS: Admitting Diagnosis Admitting Diagnosis Admitting Diagnosis: Cellulitis DS: Discharge Diagnosis Discharge Diagnosis (1) AMS (altered mental status): Code(s): R41.82 - Altered mental status, unspecified Status: Acute Assessment and Plan: * Possibly secondary to infection * Lactic acid elevated 2.7 now 1.4 * Continue vancomycin managed by pharmacy stopped cefepime to prevent C. difficile, patient developed rash with the use of Zosyn * CT of the head unremarkable, MRI unremarkable * Will discharge home with doxycycline (2) Cellulitis: Qualifiers: Laterality: unspecified laterality Site of cellulitis: extremity Site of cellulitis of extremity: lower extremity Qualified Code(s): L03.119 - Cellulitis of unspecified part of limb Code(s): L03.90 - Cellulitis, unspecified Status: Acute Assessment and Plan: * Will discharge home with doxycycline * Culture preliminary no growth * WBCs within normal limits * Lactic acid within normal limit * Patient has home health nurse come to her house to care for lower extremity cellulitis that she has been dealing with since July (3) Acute hypokalemia: Code(s): E87.6 - Hypokalemia Status: Acute Assessment and Plan: * Potassium on admission 2.5 currently 3.3 * Continue supplements (4) retirement current use of diuretic: Code(s): Z79.899 - Other assisted (current) drug therapy Status: Acute Assessment and Plan: * Continue Lasix (5) XIN (generalized anxiety disorder): Code(s): F41.1 - Generalized anxiety disorder Status: Acute Assessment and Plan: * Continue home meds (6) Afib: Code(s): I48.91 - Unspecified atrial fibrillation Status: Acute Assessment and Plan: * Controlled * Patient not on any home medication (7) COPD (chronic obstructive pulmonary disease): Onset Date: 02/13/13 Code(s): J44.9 - Chronic obstructive pulmonary disease, unspecified Status: Acute Assessment and Plan: * Continue Singulair (8) Essential (primary) hypertension: Onset Date: 02/13/13 Code(s): I10 - Essential (primary) hypertension Status: Acute Assessment and Plan: * Stable * Continue lisinopril * (9) Polymyalgia rheumatica: Onset Date: 02/13/13 Code(s): M35.3 - Polymyalgia rheumatica Status: Acute Assessment and Plan: * Continue prednisone. Patient prednisone has been decreased to 5 mg daily. She will need to follow-up with her primary care physician to taper prednisone off (10) Acute kidney injury: Code(s): N17.9 - Acute kidney failure, unspecified Status: Acute Assessment and Plan: * On admission BUN and creatinine 37 and 2.05 on discharge 37/1.19 improving * Possibly secondary to infection versus diuretics * Improving (11) Hypomagnesemia: Code(s): E83.42 - Hypomagnesemia Status: Acute Assessment and Plan: * On admission magnesium 1.7 now within normal limits * Supplement given * We will continue to monitor (12) Peripheral edema: Code(s): R60.9 - Edema, unspecified Status: Acute Assessment and Plan: * Continue home medication (13) Polymyalgia: Code(s): M35.3 - Polymyalgia rheumatica Status: Inactive (14) HLD (hyperlipidemia): Code(s): E78.5 - Hyperlipidemia, unspecified Status: Acute DS: Summary Hospital Course Reason for hospi
--- NOTE | 2020-11-08 11:09 | PM.DS ---
DS: Admitting Diagnosis Admitting Diagnosis Admitting Diagnosis: Cellulitis DS: Discharge Diagnosis Discharge Diagnosis (1) AMS (altered mental status): Code(s): R41.82 - Altered mental status, unspecified Status: Acute Assessment and Plan: Possibly secondary to infection Lactic acid elevated 2.7 now 1.4 Continue vancomycin managed by pharmacy stopped cefepime to prevent C. difficile, patient developed rash with the use of Zosyn CT of the head unremarkable, MRI unremarkable Will discharge home with doxycycline (2) Cellulitis: Qualifiers: Laterality: unspecified laterality Site of cellulitis: extremity Site of cellulitis of extremity: lower extremity Qualified Code(s): L03.119 - Cellulitis of unspecified part of limb Code(s): L03.90 - Cellulitis, unspecified Status: Acute Assessment and Plan: Will discharge home with doxycycline Culture preliminary no growth WBCs within normal limits Lactic acid within normal limit Patient has home health nurse come to her house to care for lower extremity cellulitis that she has been dealing with since July (3) Acute hypokalemia: Code(s): E87.6 - Hypokalemia Status: Acute Assessment and Plan: Potassium on admission 2.5 currently 3.3 Continue supplements (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: Code(s): Z79.899 - Other snf (current) drug therapy Status: Acute Assessment and Plan: Continue Lasix (5) XIN (generalized anxiety disorder): Code(s): F41.1 - Generalized anxiety disorder Status: Acute Assessment and Plan: Continue home meds (6) Afib: Code(s): I48.91 - Unspecified atrial fibrillation Status: Acute Assessment and Plan: Controlled Patient not on any home medication (7) COPD (chronic obstructive pulmonary disease): Onset Date: 02/13/13 Code(s): J44.9 - Chronic obstructive pulmonary disease, unspecified Status: Acute Assessment and Plan: Continue Singulair (8) Essential (primary) hypertension: Onset Date: 02/13/13 Code(s): I10 - Essential (primary) hypertension Status: Acute Assessment and Plan: Stable Continue lisinopril (9) Polymyalgia rheumatica: Onset Date: 02/13/13 Code(s): M35.3 - Polymyalgia rheumatica Status: Acute Assessment and Plan: Continue prednisone. Patient prednisone has been decreased to 5 mg daily. She will need to follow-up with her primary care physician to taper prednisone off (10) Acute kidney injury: Code(s): N17.9 - Acute kidney failure, unspecified Status: Acute Assessment and Plan: On admission BUN and creatinine 37 and 2.05 on discharge 37/1.19 improving Possibly secondary to infection versus diuretics Improving (11) Hypomagnesemia: Code(s): E83.42 - Hypomagnesemia Status: Acute Assessment and Plan: On admission magnesium 1.7 now within normal limits Supplement given We will continue to monitor (12) Peripheral edema: Code(s): R60.9 - Edema, unspecified Status: Acute Assessment and Plan: Continue home medication (13) Polymyalgia: Code(s): M35.3 - Polymyalgia rheumatica Status: Inactive (14) HLD (hyperlipidemia): Code(s): E78.5 - Hyperlipidemia, unspecified Status: Acute DS: Summary Hospital Course Reason for hospitalization: Cellulitis Hospital Course: Leyda Arriaga is a 75 year old female who presented to our ED with complaints of weakness, fatigue and mental status change. Patient has a past medical history of A. fib, cellulitis of the lower extremities and polymyalgia. According to patient and her sister a home health assistant baseball coach noticed that the patient appeared to be more weak,fatigued and change in speech. According to patient and her sister she has been receiving treatment for cellulitis since July.
--- NOTE | 2020-11-11 15:25 | PC.NURSE ---
[facility] nurse states they received and understood the discharge instructions.
== END 2020-11-08 13:10 | DRG 603 ==
LOC: CHSED 12:38 → CHS2ND 14:15
PROVIDERS: Nurse Practitioner; Admitting Provider Emergency Medicine; Emergency Provider Emergency Medicine; PCP Nurse Practitioner Family; Visit Provider Emergency Medicine
DX: L03.116 Cellulitis of left lower limb (principal); L03.115 Cellulitis of right lower limb; E87.6 Hypokalemia; I48.20 Chronic atrial fibrillation, unspecified; Z90.711 Acquired absence of uterus with remaining cervical stump; Z96.659 Presence of unspecified artificial knee joint; Z87.891 Personal history of nicotine dependence; N17.9 Acute kidney failure, unspecified; E83.42 Hypomagnesemia; I10 Essential (primary) hypertension; T36.0X5A Adverse effect of penicillins, initial encounter; L27.1 Localized skin eruption due to drugs and medicaments taken internally; J44.9 Chronic obstructive pulmonary disease, unspecified; R41.82 Altered mental status, unspecified; M35.3 Polymyalgia rheumatica; F41.9 Anxiety disorder, unspecified; Z20.822 Contact with and (suspected) exposure to COVID-19; Z79.899 Other long term (current) drug therapy
CPT/HCPCS: 36415; 70450; 70551; 80048; 80053; 81001; 83605; 83735; 83880; 84484; 85025; 85027; 85610; 85730; 87040; 87426; 93005; 97162; 97165; 97530; 97535; 99285; A9270; C9803; J0692; J1100; J1200; J1650; J2060; J2543; J3370; J3475; J7030; J7512

== ENCOUNTER 2020-12-03 15:05 | Observation (INO) | payer MEDICARE, MEDICAID, SELFPAY ==
[2020-12-03] VITALS (9 sets, daily range): BP systolic 88–140; BP diastolic 36–78; PULSE 64–77; RESP 18; TEMP 36.4–37; O2SAT 94–98; BMI 51.0
--- NOTE | ~2020-12-03 | XR_ITS ---
XR chest 1V portable 12/03/2020 17:13 Indication: Lethargy Procedure: AP portable chest Comparison: No prior studies for comparison. Findings: There is right basilar infiltrates. Scoliosis. Borderline heart size. There is atherosclero sis. No significant effusion or pneumothorax. No acute osseous abnormality. Calcified granuloma right lower lung zone. Impression: 1: Right basilar infiltrates may represent atelectasis or developing pneumonia. Reviewed, dictated and finalized at location A. K INSPECTOR Impression: 1: Right basilar infiltrates may represent atelectasis or developing pneumonia.
--- NOTE | ~2020-12-03 | CT_ITS ---
EXAMINATION: CT brain wo con DATE: 12/03/2020 17:14 INDICATION: Generalized weakness. Altered level of consciousness. TECHNIQUE: Computed tomography (CT) of the head was performed without intravenous contrast. The mA wa s adjusted according to patient size. Iterative reconstruction technique was employed. The dose-lengt h product was 605.33 mGy-cm. COMPARISON: Head CT 11/05/2020, brain MRI 11/06/2020 FINDINGS: There are scattered areas of low attenuation in the cerebral white matter, which is within normal limits for the patient's age. There is no intracranial hemorrhage, acute infarction, or abnorm al intracranial mass lesion. The ventricles are normal in size. There are likely changes of ocular le ns replacement surgeries. There is mucosal thickening in the paranasal sinuses. The mastoid air cells are normal. IMPRESSION: 1. Normal aging brain. Reviewed, dictated and finalized at location A. R LOCOMOTIVE IMPRESSION: 1. Normal aging brain.
--- NOTE | 2020-12-03 16:37 | ECG_ITS ---
Measurements Intervals [place] Rate: 63 P: 42 DC: 171 QRS: -16 QRSD: 109 T: -7 QT: 424 QTc: 437 Interpretive Statements SINUS RHYTHM LOW QRS VOLTAGE IN PRECORDIAL LEADS BORDERLINE ST-T WAVE ABNORMALITY- INFERIOR LEADS BASELINE ARTIFACT- II, III, AVF BORDERLINE ECG Electronically Signed On 12-03-2020 17:20:43 GLOST PLACER by Good Womack D.O.
--- NOTE | 2020-12-03 16:38 | ED.WEAKNESS ---
HPI - Weakness General Chief complaint: Weakness Stated complaint: sent over by doctor/ low blood pressure/Tired Source: patient and family Mode of arrival: wheelchair Limitations: no limitations History of Present Illness HPI Narrative: Pt presents with weakness and fatigue. She states that she started feeling week in 2012, but it got acutely worse about a month ago when she had a UTI and cellulitis. She was admitted to hospital, then she went to [place] for rehab. She checked out of rehab last week, and since then she feels like she has done nothing but sleep. She is very depressed as well- cries frequently, and doesnt do much with life but worry about people and things. MD Complaint: generalized weakness and lack of energy Onset (ago): month(s) Duration: constant Location: generalized Migration: none Severity: mild Relieving factors: none Exacerbating factors: none Associated symptoms: loss of appetite Related Data Home Medications Medication Instructions Recorded Confirmed Lactobacillus acidophilus 10 mg PO DAILY 09/10/20 12/03/20 duloxetine 60 mg capsule,delayed 60 mg PO DAILY 09/10/20 12/03/20 release lovastatin 40 mg tablet 40 mg PO QPM 09/10/20 12/03/20 montelukast 10 mg tablet 10 mg PO DAILY 09/10/20 12/03/20 omeprazole 40 mg capsule,delayed 40 mg PO DAILY 09/10/20 12/03/20 release oxybutynin chloride 10 mg 10 mg PO DAILY 09/10/20 12/03/20 tablet,extended release 24 hr potassium chloride 20 mEq 20 meq PO BID tablet 10/07/20 12/03/20 tablet,extended release acetaminophen-codeine 300 tablet PO TID 11/04/20 12/03/20 Allergies Allergy/AdvReac Type Severity Reaction Status Date / Time Sulfa (Sulfonamide Allergy Severe Weakness Verified 12/03/20 14:33 Antibiotics) piperacillin [From Zosyn] Allergy Mild Rash Verified 12/03/20 14:33 tazobactam [From Zosyn] Allergy Mild Rash Verified 12/03/20 14:33 Review of Systems Constitutional: Constitutional: Denies chills, Reports fatigue, Denies fever(s) and Reports weakness Eyes: Eyes: Reports no additional eye complaints ENT: Reports system reviewed and no additional complaints, except as documented Cardiovascular: Cardiovascular: Reports no additional cardiovascular complaints Respiratory: Respiratory: Reports no additional respiratory complaints Gastrointestinal: Gastrointestinal: Reports no additional gastrointestinal complaints Genitourinary: Genitourinary: Reports no additional female genitourinary complaints Musculoskeletal: Musculoskeletal: Reports no additional musculoskeletal complaints Neurologic: Reports system reviewed and no additional complaints, except as documented Psychiatric: Psychiatric: Reports no additional psychiatric complaints Endocrine: Endocrine: Reports no additional endocrine complaints Hematologic/Lymphatic: Hematologic/Lymphatic: Reports no additional hematologic/lymphatic complaints Allergic/Immunologic: Allergic/Immunologic: Reports no additional allergic/immunologic complaints PMFSH Past Medical History Medical History Afib Cellulitis Depression HLD (hyperlipidemia) Polymyalgia Surgical History Surgical History H/O removal of cyst History of partial hysterectomy Total knee replacement status Social History Social History Smoking packs per day: 1 Smoking cigarettes per day: 20.0 Years smoked: 30 Smoking pack-years: 30.00 Smoking status: Never smoker Tobacco type: cigarettes Alcohol intake: never Substance use: never Gender identity (if verbalized by the patient): Female Spiritual care concerns: No Exam Const: General: no acute distress and alert Nutritional Appearance: obese Orientation/consciousness: patient oriented x3 HENMT: Head: normal to inspection Eyes: Conjunctivae: conjunctivae normal Pupi
[2020-12-03 16:58] LABS: Add Urine Microscopic? YES; Appearance Urine Sl Cloudy (Clear); Bilirubin Urine Negative (Negative); Blood Urine 1+ (Negative); Color Urine Yellow (Yellow); Glucose Urine UA Negative (Negative); Ketones Urine Negative (Negative); Leukocyte Esterase Ur 2+ LEU/UL (Negative); Nitrate Urine Negative (Negative); Protein Urine Negative (Negative); Specific Grav Ur 1.015 (1.010-1.020); Urobilinogen Urine 0.2 mg/dL (0.2-1.0)
[2020-12-03 16:58] LABS: Basophils Absolute Auto 0.06 K/mm3 (0.00-0.10); Basophils Percent Auto 0.6 % (0.0-1.0); Eosinophils Absolute Auto 0.02 K/mm3 (0.02-0.50); Eosinophils Percent Auto 0.2 % (1.0-6.0); Hematocrit 33.9 % (35.0-42.0); Hemoglobin 10.4 g/dL (11.7-13.8); Immature Granulocyte Absolute 0.04 K/mm3 (0.00-0.00); Immature Granulocyte Percent A 0.4 % (0.0-0.0); Lymphocytes Absolute Auto 1.07 K/mm3 (1.10-4.50); Lymphocytes Percent Auto 11.1 % (18.0-42.0); Mean Corpuscular HGB Conc 30.7 g/dL (32.0-36.0); Mean Corpuscular Volume 91.4 fL (78.0-102.0); Mean Platelet Volume 8.8 fl (9.2-11.8); Monocytes Absolute Auto 0.63 K/mm3 (0.10-0.90); Monocytes Percent Auto 6.6 % (2.0-11.0); Neutrophils Absolute Auto 7.8 K/mm3 (1.7-7.2); Neutrophils Percent Auto 81.1 % (50.0-70.0); Platelet Count Result 333 K/mm3 (150-420); Red Blood Count 3.71 M/mm3 (4.20-5.40); Red Cell Distribution Width 18.1 % (11.6-14.4); White Blood Count 9.6 K/mm3 (4.8-10.8)
[2020-12-03 17:02] LABS: Bacteria Urine 1+ /hpf; RBC Urine 0-2 /hpf (0-2); Squamous Epithelial Cell Urine Rare /hpf (Few); WBC Urine 16-20 /hpf (0-3)
[2020-12-03 17:16] LABS: Alanine Aminotransferase 15 U/L (14-59); Albumin Level 2.6 g/dL (3.4-5.0); Alkaline Phosphatase 93 U/L (46-116); Anion Gap 3 mmol/L (8-16); Aspartate Amino Transferase 25 U/L (15-37); Bilirubin,Total 0.5 mg/dL (0.00-1.00); Blood Urea Nitrogen 35 mg/dL (7-18); Calcium 9.3 mg/dL (8.5-10.1); Carbon Dioxide 37 mmol/L (21-32); Chloride 95 mmol/L (98-108); Estimated CRCL calculation 32 ml/min; Estimated Glomerular Filt Rate 28; Glucose 143 mg/dL (70-99); Osmolality Calculated 290 mOsm/kg (285-295); Potassium 3.8 mmol/L (3.5-5.1); Sodium 135 mmol/L (136-145); Total Protein 7.1 g/dL (6.4-8.2); Troponin I 16.7 ng/L (0.00-60.4)
[2020-12-03 17:17] LABS: Ammonia < 10 umol/L (11-32)
[2020-12-03 17:19] LABS: Lactic Acid Reflex 1.7 mmol/L (0.4-2.0)
--- NOTE | 2020-12-03 19:02 | ADMGEN ---
This patient, Leyda Arriaga, was admitted to 2nd Floor Room 208-2. Patient oriented to hospital policies and general routines including ID bracelet, bed and alarms, visiting hours, pain management, procedures, bathroom and other care routines, personal items, smoking policy, room service/diet, and visiting hours. Patient encouraged to report perceived risks to care and to ask questions if they do not understand what they are told or what they should do.
[2020-12-03] MEDS: FUROSEMIDE 20 MG TABLET PO (20:02)
[2020-12-03] MEDS: POTASSIUM CHLORIDE 20 MEQ TABLET PO (20:02)
[2020-12-03] MEDS: LOVASTATIN 20 MG TABLET 40 MG PO (20:03)
[2020-12-03] MEDS: ENOXAPARIN 40 MG/0.4 ML SYRINGE SUB-Q (20:03)
[2020-12-03] MEDS: DOXYCYCLINE HYCLATE 100 MG TABLET PO (20:03)
[2020-12-03] MEDS: PANTOPRAZOLE 40 MG TABLET PO (20:03)
--- NOTE | 2020-12-03 23:58 | PC.NURSE ---
Dr. Buck notified of pt's low blood pressure readings; New orders received and noted.
--- NOTE | 2020-12-04 00:15 | PC.NURSE ---
New IV site started to the left forearm with a #24 gauge catheter.
[2020-12-04] MEDS: SODIUM CHLORIDE 0.9% IV 1,000 ML 999 ML IV CONT (00:35)
[2020-12-04 04:10] VITALS: BP 92/42; PULSE 72; RESP 20; TEMP 36.8; O2SAT 94
--- NOTE | 2020-12-04 04:16 | PC.NURSE ---
pt assisted to recliner from bed, states she prefers recliners, pt given cottage cheese and con crackers per request
[2020-12-04 05:40] LABS: Potassium 3.3 mmol/L (3.5-5.1)
[2020-12-04 06:13] LABS: Glucose Point of Care 117 (65-105)
[2020-12-04 07:30] VITALS: BP 97/30; PULSE 75; RESP 18; TEMP 36.5; O2SAT 96
--- NOTE | 2020-12-04 07:30 | PC.NURSE ---
Up from chair to bed, states in chair for too long, able to get to standing position on own, cannot get legs in to bed with out assistance, is able to adjust self once in bed
[2020-12-04] MEDS: SACCHAROMYCES BOULARDII 250 MG CAPSULE PO ×2 (08:51→16:55)
[2020-12-04] MEDS: ARIPiprazole 2 MG TABLET PO (08:52)
[2020-12-04] MEDS: DULoxetine HCL 30 MG CAPSULE.DR 60 MG PO (08:53)
[2020-12-04] MEDS: metOLazone 2.5 MG TABLET PO (08:54)
[2020-12-04] MEDS: CHOLECALCIFEROL 1,000 UNITS TABLET 1000 UNITS PO (08:54)
[2020-12-04] MEDS: MONTELUKAST SODIUM 10 MG TABLET PO (08:54)
[2020-12-04] MEDS: DOXYCYCLINE HYCLATE 100 MG TABLET PO ×2 (08:55→21:04)
[2020-12-04] MEDS: POTASSIUM CHLORIDE 20 MEQ TABLET PO ×2 (08:55→16:55)
[2020-12-04] MEDS: FOLIC ACID 1 MG TABLET PO (08:56)
[2020-12-04] MEDS: PANTOPRAZOLE 40 MG TABLET PO ×2 (08:56→21:04)
[2020-12-04] MEDS: predniSONE 5 MG TABLET PO (08:57)
[2020-12-04] MEDS: ACETAMINOPHEN/CODEINE (*CRX) 300/30 MG TABLET 1 TAB PO (08:57)
[2020-12-04] MEDS: FUROSEMIDE 20 MG TABLET PO ×2 (08:57→16:55)
--- NOTE | 2020-12-04 09:22 | PC.NURSE ---
Lisinopril held this am due to lower blood pressure
[2020-12-04 10:26] LABS: Alanine Aminotransferase 15 U/L (14-59); Alkaline Phosphatase 71 U/L (46-116); Anion Gap 6 mmol/L (8-16); Aspartate Amino Transferase 19 U/L (15-37); Bilirubin,Total 0.4 mg/dL (0.00-1.00); Blood Urea Nitrogen 38 mg/dL (7-18); Calcium 8.2 mg/dL (8.5-10.1); Carbon Dioxide 35 mmol/L (21-32); Chloride 96 mmol/L (98-108); Estimated CRCL calculation 25 ml/min; Estimated Glomerular Filt Rate 21; Glucose 113 mg/dL (70-99); Osmolality Calculated 294 mOsm/kg (285-295); Potassium 3.4 mmol/L (3.5-5.1); Sodium 137 mmol/L (136-145); Total Protein 5.6 g/dL (6.4-8.2)
--- NOTE | 2020-12-04 10:43 | PC.NURSE ---
Up to commode and then to chair, tolerated well, slight tremors noted to legs before getting out of bed, not noted while up and moving
[2020-12-04 11:44] VITALS: BP 90/30; PULSE 75; RESP 18; TEMP 36.5; O2SAT 72
--- NOTE | 2020-12-04 12:49 | PC.NURSE ---
Assisted back to bed, used walker and assist with legs only, tolerated well
--- NOTE | 2020-12-04 13:24 | PM.IMHP ---
H&P: HPI History of Present Illness Date/Time: 12/04/20 13:24 <RANGEL Curtis - Last Filed: 12/04/20 14:05> Chief Complaint: Generalized weakness <RANGEL Curtis - Last Filed: 12/04/20 14:05> Narrative: Leyda Arriaga is a 75 year old female that was sent over from her primary care physician office due to hypotension. Patient has some past medical history of A. fib, cellulitis, depression, HDL in acute on chronic diastolic heart failure, mixed hyperlipidemia, bilateral lower extremity edema, lymphedema. On 11/28/2020 patient was admitted to [facility] a day after she had been left [facility] rehab in [facility]. She was admitted to [place] for acute on chronic diastolic heart failure with chronic bilateral lower extremity Edema. According to Patient She Was at Her [facility] when He Noticed Lower Extremity Edema and Refer Her to [place] ED. According to Notes Patient Had Lower Extremity Edema since January 2020 That Had Not Improved. It is unclear how much diuretics the patient received while at [facility]. On admission patient sodium 135, potassium 3.8, chloride 95, BUN 35, creatinine 1.77. UA did indicate leukocytes bacteria and WBCs. CT of the head unremarkable, chest x-ray indicate developing pneumonia. the patient denies SOB, CP, palpitation, extremity numbness, lightheadedness, dizziness, constipation, diarrhea, chills, or fever. Patient does complain of involuntary tremors she also notes that Disposition: Patient will discharge home to a snf or assisted living patient is not capable of living alone. <RANGEL Curtis - Last Filed: 12/04/20 14:05> Review of Systems Review of Systems: All systems reviewed & are unremarkable except as noted in HPI and below (10 point system review) <RANGEL Curtis - Last Filed: 12/04/20 14:05> [facility] Past Medical History Medical History: Medical History (Updated 12/04/20 @ 14:31 by Nupur Leung RN) Afib Bladder spasms Cellulitis Depression GERD (gastroesophageal reflux disease) HLD (hyperlipidemia) Polymyalgia Vitamin D deficiency <RANGEL Curtis - Last Filed: 12/04/20 14:05> Surgical History Surgical History: Surgical History H/O removal of cyst History of partial hysterectomy Total knee replacement status <RANGEL Curtis - Last Filed: 12/04/20 14:05> Social History Social History: Social History Smoking packs per day: 1 Smoking cigarettes per day: 20.0 Years smoked: 30 Smoking pack-years: 30.00 Smoking status: Former smoker Tobacco type: cigarettes Alcohol intake: never Substance use: never Gender identity (if verbalized by the patient): Female Sexual Orientation (if Verbalized by the Patient): Straight or Heterosexual Spiritual care concerns: No <RANGEL Curtis - Last Filed: 12/04/20 14:05> Meds Home Medications and Allergies Home medications: Home Medications Medication Instructions Recorded Confirmed Type Lactobacillus acidophilus 10 mg PO DAILY 09/10/20 12/03/20 History duloxetine 60 mg capsule,delayed 60 mg PO DAILY 09/10/20 12/03/20 History release lovastatin 40 mg tablet 40 mg PO QPM 09/10/20 12/03/20 History montelukast 10 mg tablet 10 mg PO DAILY 09/10/20 12/03/20 History omeprazole 40 mg capsule,delayed 40 mg PO DAILY 09/10/20 12/03/20 History release oxybutynin chloride 10 mg 10 mg PO DAILY 09/10/20 12/03/20 History tablet,extended release 24 hr aripiprazole 2 mg tablet 2 mg PO DAILY #30 tablet 10/07/20 12/03/20 Rx cholecalciferol (vitamin D3) 25 25 mcg PO DAILY #90 cap 10/07/20 12/03/20 Rx mcg (1,000 unit) capsule potassium chloride 20 mEq 20 meq PO BID tablet 10/07/20 12/03/20 History tablet,extended release furosemide 20 mg tablet 20 mg PO BID
[2020-12-04] MEDS: MIDODRINE HCL 2.5 MG TABLET PO ×2 (13:53→16:56)
--- NOTE | 2020-12-04 14:29 | PC.NURSE ---
Assisted with personal items in room, family brought cpap in from home to use at night, no distress noted, HOB elevated
--- NOTE | 2020-12-04 15:19 | PC.NURSE ---
[facility] home from [facility] and sibling to check in on her, but has had 2 observation stays in hospitals since. Per above and patient unable to live alone and prefers not to go back into [facility]. PT eval patient and reports assisted living would be suitable. Patient and sibling have been working on getting her into [facility] in [place]. Most paper work in, but needs clearing from PCP. Patient is weak at present with needing meds tweak and short term physical therapy (refer to H&P)-then can proceed with assisted living. [facility]
[2020-12-04 16:00] VITALS: BP 96/37; PULSE 79; RESP 18; TEMP 36; O2SAT 93
[2020-12-04] MEDS: LOVASTATIN 20 MG TABLET 40 MG PO (16:53)
[2020-12-04 20:00] VITALS: BP 109/23; PULSE 90; RESP 18; TEMP 37; O2SAT 95
[2020-12-04] MEDS: BUDESONIDE/FORMOTEROL 80/4.5 MCG 6.9 GM INHALER (*SP) 2 PUFF INHALATION (21:04)
[2020-12-04] MEDS: ENOXAPARIN 30 MG/0.3 ML SYRINGE SUB-Q (21:04)
--- NOTE | 2020-12-04 21:51 | PC.NURSE ---
pt has been up for walk around the room x3, with walker and belt, pt states she thinks she has depression, feet up in chair, cpap on
--- NOTE | 2020-12-04 22:13 | PC.NURSE ---
pt wants cpap off, states it feels like its suffocating her, will sleep in chair, legs elevated, warm blanket given
[2020-12-05] VITALS: BP 121/41; PULSE 81; RESP 20; TEMP 36.7; O2SAT 95
[2020-12-05 04:00] VITALS: BP 112/51; PULSE 67; RESP 20; TEMP 37; O2SAT 94
[2020-12-05 05:46] LABS: Hematocrit 29.3 % (35.0-42.0); Hemoglobin 8.9 g/dL (11.7-13.8); Mean Corpuscular HGB Conc 30.4 g/dL (32.0-36.0); Mean Corpuscular Hemoglobin 27.4 pg (27.0-31.0); Mean Corpuscular Volume 90.2 fL (78.0-102.0); Mean Platelet Volume 8.6 fl (9.2-11.8); Platelet Count Result 304 K/mm3 (150-420); Red Blood Count 3.25 M/mm3 (4.20-5.40); Red Cell Distribution Width 17.6 % (11.6-14.4); White Blood Count 7.5 K/mm3 (4.8-10.8)
[2020-12-05 06:06] LABS: Alanine Aminotransferase 15 U/L (14-59); Albumin Level 2.2 g/dL (3.4-5.0); Alkaline Phosphatase 71 U/L (46-116); Anion Gap 6 mmol/L (8-16); Aspartate Amino Transferase 19 U/L (15-37); Bilirubin,Total 0.4 mg/dL (0.00-1.00); Blood Urea Nitrogen 36 mg/dL (7-18); Calcium 8.1 mg/dL (8.5-10.1); Carbon Dioxide 35 mmol/L (21-32); Chloride 97 mmol/L (98-108); Estimated CRCL calculation 29 ml/min; Estimated Glomerular Filt Rate 26; Glucose 92 mg/dL (70-99); Magnesium 1.4 mg/dL (1.8-2.4); Osmolality Calculated 294 mOsm/kg (285-295); Potassium 3.2 mmol/L (3.5-5.1); Sodium 138 mmol/L (136-145); Total Protein 5.4 g/dL (6.4-8.2)
[2020-12-05 06:09] LABS: BNP 130 pg/mL (0-100)
[2020-12-05 08:00] VITALS: BP 121/51; PULSE 88; RESP 16; TEMP 36.7; O2SAT 95
[2020-12-05] MEDS: SACCHAROMYCES BOULARDII 250 MG CAPSULE PO (09:12)
[2020-12-05] MEDS: metOLazone 2.5 MG TABLET PO (09:12)
[2020-12-05] MEDS: predniSONE 5 MG TABLET PO (09:12)
[2020-12-05] MEDS: DOXYCYCLINE HYCLATE 100 MG TABLET PO (09:12)
[2020-12-05] MEDS: MONTELUKAST SODIUM 10 MG TABLET PO (09:12)
[2020-12-05] MEDS: FUROSEMIDE 20 MG TABLET PO (09:13)
[2020-12-05] MEDS: CHOLECALCIFEROL 1,000 UNITS TABLET 1000 UNITS PO (09:13)
[2020-12-05] MEDS: MIDODRINE HCL 2.5 MG TABLET PO ×2 (09:13→12:26)
[2020-12-05] MEDS: ACETAMINOPHEN/CODEINE (*CRX) 300/30 MG TABLET 1 TAB PO (09:13)
[2020-12-05] MEDS: PANTOPRAZOLE 40 MG TABLET PO (09:13)
[2020-12-05] MEDS: POTASSIUM CHLORIDE 20 MEQ TABLET PO (09:14)
[2020-12-05] MEDS: DULoxetine HCL 30 MG CAPSULE.DR 60 MG PO (09:14)
[2020-12-05] MEDS: BUDESONIDE/FORMOTEROL 80/4.5 MCG 6.9 GM INHALER (*SP) 2 PUFF INHALATION (09:14)
[2020-12-05] MEDS: FOLIC ACID 1 MG TABLET PO (09:14)
[2020-12-05] MEDS: POTASSIUM CHLORIDE 20 MEQ TABLET 40 MEQ PO (10:29)
--- NOTE | 2020-12-05 12:40 | P.DS_ITS ---
DS: Admitting Diagnosis Admitting Diagnosis Admitting Diagnosis: Urinary tract infection, pneumonia, newly diagnosed Parkinson's DS: Discharge Diagnosis Discharge Diagnosis (1) Urinary tract infection: Qualifiers: Hematuria presence: without hematuria Urinary tract infection type: acute cystitis Qualified Code(s): N30.00 - Acute cystitis without hematuria Code(s): N39.0 - Urinary tract infection, site not specified Status: Acute Assessment and Plan: * UA indicates leukocytes * UA culture indicate Proteus mirabilis * Will discharge with Cipro (2) Pneumonia: Qualifiers: Laterality: unspecified laterality Lung location: unspecified part of lung Pneumonia type: due to unspecified organism Qualified Code(s): J18.9 - Pneumonia, unspecified organism Code(s): J18.9 - Pneumonia, unspecified organism Status: Acute Assessment and Plan: * Chest x-ray indicate developing pneumonia * Patient on Levaquin and doxy as inpatient will discharge with Cipro * WBC within normal limit patient afebrile * Blood culture no growth (3) Hypotension: Code(s): I95.9 - Hypotension, unspecified Status: Acute Assessment and Plan: * Resolved * Possibly secondary to diuretic therapy from previous hospital versus hypertension medication versus Parkinson * Per Dr. Fiore stop lisinopril 5 mg, metolazone and Lasix 20 mg and start midodrine (4) HLD (hyperlipidemia): Code(s): E78.5 - Hyperlipidemia, unspecified Status: Acute Assessment and Plan: * Continue home medication statins (5) Depression: Code(s): F32.9 - Major depressive disorder, single episode, unspecified Status: Acute Assessment and Plan: * Continue Cymbalta discontinue Abilify per Dr. Jones (6) Peripheral edema: Code(s): R60.9 - Edema, unspecified Status: Acute Assessment and Plan: * Patient was discharged home with Lasix (7) Acute hypokalemia: Code(s): E87.6 - Hypokalemia Status: Acute Assessment and Plan: * Potassium on admission3.3-->3.4-->3.2 * Continue supplements (8) Afib: Code(s): I48.91 - Unspecified atrial fibrillation Status: Acute Assessment and Plan: * Controlled * Patient is not on any current medication for her A. fib * Assuming she is not on any anticoagulant due to her high fall risk (9) COPD (chronic obstructive pulmonary disease): Onset Date: 02/13/13 Code(s): J44.9 - Chronic obstructive pulmonary disease, unspecified Status: Acute Assessment and Plan: * Stable (10) XIN (generalized anxiety disorder): Code(s): F41.1 - Generalized anxiety disorder Status: Acute Assessment and Plan: * Continue home medication (11) Acute kidney injury: Code(s): N17.9 - Acute kidney failure, unspecified Status: Acute Assessment and Plan: * On admission creatinine1.77-->2.24--> 1.91 BUN 35-->38-->36, improved * Baseline creatinine appears to be between 1.4-1.6 * Follow-up with research attorney (12) Generalized weakness: Code(s): R53.1 - Weakness Status: Acute Assessment and Plan: * Continue home PT OT * Case coordination consulted patient did not qualify for swing bed will discharge home with home health (13) Occasional tremors: Code(s): R25.1 - Tremor, unspecified Status: Acute Assessment and Plan: * Possibly secondary to psychiatric medication versus long-term u
--- NOTE | 2020-12-05 12:40 | PM.DS ---
DS: Admitting Diagnosis Admitting Diagnosis Admitting Diagnosis: Urinary tract infection, pneumonia, newly diagnosed Parkinson's DS: Discharge Diagnosis Discharge Diagnosis (1) Urinary tract infection: Qualifiers: Hematuria presence: without hematuria Urinary tract infection type: acute cystitis Qualified Code(s): N30.00 - Acute cystitis without hematuria Code(s): N39.0 - Urinary tract infection, site not specified Status: Acute Assessment and Plan: UA indicates leukocytes UA culture indicate Proteus mirabilis Will discharge with Cipro (2) Pneumonia: Qualifiers: Laterality: unspecified laterality Lung location: unspecified part of lung Pneumonia type: due to unspecified organism Qualified Code(s): J18.9 - Pneumonia, unspecified organism Code(s): J18.9 - Pneumonia, unspecified organism Status: Acute Assessment and Plan: Chest x-ray indicate developing pneumonia Patient on Levaquin and doxy as inpatient will discharge with Cipro WBC within normal limit patient afebrile Blood culture no growth (3) Hypotension: Code(s): I95.9 - Hypotension, unspecified Status: Acute Assessment and Plan: Resolved Possibly secondary to diuretic therapy from previous hospital versus hypertension medication versus Parkinson Per Dr. Fiore stop lisinopril 5 mg, metolazone and Lasix 20 mg and start midodrine (4) HLD (hyperlipidemia): Code(s): E78.5 - Hyperlipidemia, unspecified Status: Acute Assessment and Plan: Continue home medication statins (5) Depression: Code(s): F32.9 - Major depressive disorder, single episode, unspecified Status: Acute Assessment and Plan: Continue Cymbalta discontinue Abilify per Dr. Jones (6) Peripheral edema: Code(s): R60.9 - Edema, unspecified Status: Acute Assessment and Plan: Patient was discharged home with Lasix (7) Acute hypokalemia: Code(s): E87.6 - Hypokalemia Status: Acute Assessment and Plan: Potassium on admission3.3-->3.4-->3.2 Continue supplements (8) Afib: Code(s): I48.91 - Unspecified atrial fibrillation Status: Acute Assessment and Plan: Controlled Patient is not on any current medication for her A. fib Assuming she is not on any anticoagulant due to her high fall risk (9) COPD (chronic obstructive pulmonary disease): Onset Date: 02/13/13 Code(s): J44.9 - Chronic obstructive pulmonary disease, unspecified Status: Acute Assessment and Plan: Stable (10) XIN (generalized anxiety disorder): Code(s): F41.1 - Generalized anxiety disorder Status: Acute Assessment and Plan: Continue home medication (11) Acute kidney injury: Code(s): N17.9 - Acute kidney failure, unspecified Status: Acute Assessment and Plan: On admission creatinine1.77-->2.24--> 1.91 BUN 35-->38-->36, improved Baseline creatinine appears to be between 1.4-1.6 Follow-up with bi manager (12) Generalized weakness: Code(s): R53.1 - Weakness Status: Acute Assessment and Plan: Continue home PT OT Case coordination consulted patient did not qualify for swing bed will discharge home with home health (13) Occasional tremors: Code(s): R25.1 - Tremor, unspecified Status: Acute Assessment and Plan: Possibly secondary to psychiatric medication versus long-term use of steroids versus Parkinson's Per Dr. Roxanne Ayala discontinued (14) Parkinsons disease: Code(s): G20 - Parkinson's disease Status: Acute Assessment and Plan: As evidence by asymmetrical resting tremors, cognitive abnormalities, depression, increased dementia and hypotension Started the patient on levodopa Will follow up with primary care physician DS: Summary Hospital Course Hospital Course: Leyda Arriaga is a 75 year
--- NOTE | 2020-12-05 16:24 | PC.NURSE ---
Patient transported off of floor via wheelchair to personal vehicle. Patient discharged to home
--- NOTE | 2020-12-06 08:15 | P.PNCROSS_ITS ---
Event Note Event Note Event Note: Called to Leyda also her sister who is her superior court judge informed her that she would need to discontinue the use of Cipro and start cefdinir 300 mg daily x10 days for her urinary tract infection with the growth of Proteus Mirabilis
--- NOTE | 2020-12-11 10:46 | PC.NURSE ---
Pt states she received and understood her discharge instructions. Pt states she is going to the [facility]. She has no other comments.
== END 2020-12-05 16:15 | disposition home health service (06) ==
LOC: CHSED 17:30 → CHS2ND 17:38
PROVIDERS: Nurse Practitioner; Admitting Provider Emergency Medicine; Emergency Provider Emergency Medicine; PCP Nurse Practitioner Family; Visit Provider Emergency Medicine
DX: N30.00 Acute cystitis without hematuria (principal); B96.4 Proteus (mirabilis) (morganii) as the cause of diseases classified elsewhere; J18.9 Pneumonia, unspecified organism; E87.6 Hypokalemia; I48.91 Unspecified atrial fibrillation; I50.33 Acute on chronic diastolic (congestive) heart failure; I95.9 Hypotension, unspecified; J44.9 Chronic obstructive pulmonary disease, unspecified; R53.1 Weakness; E78.5 Hyperlipidemia, unspecified; G20 Parkinson's disease; F32.9 Major depressive disorder, single episode, unspecified; F41.1 Generalized anxiety disorder; Z90.711 Acquired absence of uterus with remaining cervical stump; Z96.659 Presence of unspecified artificial knee joint; Z87.891 Personal history of nicotine dependence
CPT/HCPCS: 36415; 70450; 71045; 80053; 81001; 82140; 82948; 83605; 83735; 83880; 84132; 84484; 85025; 85027; 87077; 87086; 87088; 87186; 93005; 96361; 96365; 96366; 96372; 97110; 97161; 97165; 97530; 99285; A9270; G0378; J1650; J1956; J7030; J7512

== ENCOUNTER 2022-03-21 21:49 | Inpatient (IN) | payer MEDICARE, MEDICAID, SELFPAY ==
--- NOTE | ~2022-03-21 | XR_ITS ---
EXAMINATION: XR ERCP DATE: 03/23/2022 12:00 CDT INDICATION: GALLSTONES . TECHNIQUE: 4 fluoroscopic images of the right upper quadrant were obtained during ERCP performed by t magda surgeon. I was not present in the operating room. Fluoroscopy exposure time was 270.3 seconds. Cum ulative dose was 82.12 mGy. COMPARISON: None FINDINGS: Endoscope projects over the right upper quadrant, with wire access to the pancreatic duct. Contrast f illing of normal diameter pancreatic duct. Placement of a pancreatic duct drain. Final image demonstr ates wire access to the common bile duct and possibly into the cystic duct. Common duct is dilated. IMPRESSION: Fluoroscopic documentation of ERCP. Reviewed, dictated and finalized at location K.
--- NOTE | 2022-03-21 23:29 | PM.IMHP ---
H&P: HPI History of Present Illness Date/Time: 03/21/22 23:29 Chief Complaint: Abdominal pain Narrative: This is a 76-year-old female with past medical history significant for polymyalgia rheumatica, COPD, GERD, atrial fibrillation, anticoagulated, rate controlled, dyslipidemia, choledocholithiasis. Patient comes as a transfer from outside hospital were she presented for abdominal pain she was at rehabilitation facility and she has been experimenting abdominal pain for the last 2 weeks or so workup revealed dilatation of the common bile duct patient was transferred to our facility for evaluation by Gastroenterology. Patient denies any fevers, rigors, chills, has had poor appetite pain gets worse after meals had some nausea and vomiting as well. Preliminary workup was significant for AST 259 ALT 215 alk phos 377. Review of Systems Review of Systems: Abdominal pain decreased appetite Constitutional: Constitutional: Denies chills, Denies fever(s) and Denies malaise Eyes: Eyes: Denies change in vision ENT: Denies dysphagia and Denies odynophagia Cardiovascular: Cardiovascular: Denies chest pain, Denies syncope, Denies irregular heart rhythm, Denies lightheadedness and Denies palpitations Respiratory: Respiratory: Denies chest congestion, Denies cough and Denies excessive phlegm production Gastrointestinal: Gastrointestinal: Reports abdominal pain (Epigastric), Denies GI cramping, Denies dyspepsia, Denies heartburn, Denies diarrhea, Reports nausea and Reports vomiting Genitourinary: Genitourinary: Denies dysuria Musculoskeletal: Musculoskeletal: Denies joint swelling and Denies muscle weakness Integumentary/Breasts: Skin/Breast: Denies rash Neurologic: Denies focal weakness and Denies Sensory deficit (Neuro) Psychiatric: Psychiatric: Reports no additional psychiatric complaints and Reports as per HPI Endocrine: Endocrine: Denies cold intolerance, Denies fatigue, Denies flushing, Denies heat intolerance, Denies polyphagia, Denies polydipsia and Denies palpitations Hematologic/Lymphatic: Hematologic/Lymphatic: Reports no additional hematologic/lymphatic complaints and Reports as per HPI Allergic/Immunologic: Allergic/Immunologic: Reports no additional allergic/immunologic complaints and Reports as per HPI PMFSH Past Medical History Medical History (Updated 03/22/22 @ 13:51 by Chris Campbell MD) Afib Bladder spasms Cellulitis Cholecystitis Choledocholithiasis Depression Elevated liver enzymes GERD (gastroesophageal reflux disease) HLD (hyperlipidemia) Polymyalgia Vitamin D deficiency Surgical History Surgical History H/O removal of cyst History of partial hysterectomy Total knee replacement status Family History Family History (Updated 03/22/22 @ 02:52 by Allison Lopez RN) Other Unknown family medical history Social History Social History Smoking packs per day: 1 Smoking cigarettes per day: 20.0 Years smoked: 30 Smoking pack-years: 30.00 Smoking status: Never smoker Tobacco type: cigarettes Alcohol intake: never Substance use: never Gender identity (if verbalized by the patient): Female Sexual Orientation (if Verbalized by the Patient): Straight or Heterosexual Spiritual care concerns: No Meds Home Medications and Allergies Home Medications Medication Instructions Recorded Confirmed Type lovastatin 40 mg tablet 40 mg PO QPM 09/10/20 03/21/22 History montelukast 10 mg tablet 10 mg PO DAILY 09/10/20 03/21/22 History omeprazole 40 mg capsule,delayed 40 mg PO DAILY 09/10/20 03/21/22 History release cholecalciferol (vitamin D3) 25 25 mcg PO DAILY #90 caps 10/07/20 03/21/22 Rx mcg (1,000 unit) capsule folic acid 1 mg tablet 1 mg PO DAILY #30 tabs 11/07/20 03/21/22 Rx duloxetine 60 mg capsule,delayed 60 mg PO DAILY #60 caps 12/06/20
[2022-03-21 23:32] VITALS: BP 120/63; PULSE 55; RESP 20; TEMP 36.6; O2SAT 100
--- NOTE | 2022-03-21 23:50 | ADMGEN ---
This patient, Leyda Arriaga, was admitted to [address] [place] [address] Room 342-01 as a direct admit from [facility] via [facility]. Patient/family oriented to hospital policies and general routines including ID bracelet, bed and alarms, visiting hours, pain management, procedures, bathroom and other care routines, personal items, smoking policy, room service/diet, and visiting hours. Information on how to activate the Rapid Response Team has been discussed. Patient/Family are encouraged to report perceived risks to care and to ask questions if they do not understand what they are told or what they should do. OB admitting, Care Trainer and Physician notified.
[2022-03-22] MEDS: HYDROmorphone HCL INJ (*CRX) 1 MG/ML SYR IV PUSH (00:49)
[2022-03-22] MEDS: DEXTROSE 5%/0.45% SOD CHL 1,000 ML 100 ML IV CONT ×3 (00:51→20:35)
--- NOTE | 2022-03-22 03:36 | PCRCNOTE ---
Pt w/not wear BIPAP at home and does not want to wear one here
[2022-03-22 06:00] VITALS: BP 134/64; PULSE 54; RESP 20; TEMP 36.4; O2SAT 95
[2022-03-22 06:02] LABS: Basophils Absolute Auto 0.1 K/mm3 (0.0-0.1); Basophils Percent Auto 0.7 % (0.2-1.2); Eosinophils Absolute Auto 0.2 K/mm3 (0-0.3); Eosinophils Percent Auto 2.6 % (0-4.4); Hematocrit 37.6 % (37.0-47.0); Hemoglobin 12.3 g/dL (12.0-15.0); Immature Granulocyte Absolute 0.03 K/mm3 (0.00-0.031); Immature Granulocyte Percent A 0.4 % (0-0.5); Lymphocytes Absolute Auto 2.15 K/mm3 (0.9-3.2); Lymphocytes Percent Auto 26.4 % (18.3-44.2); Mean Corpuscular HGB Conc 32.7 g/dl (32-36); Mean Corpuscular Hemoglobin 29.4 pg (26-34); Mean Corpuscular Volume 89.7 fl (80-100); Monocytes Absolute Auto 0.8 K/mm3 (0.1-0.6); Monocytes Percent Auto 9.9 % (2.6-8.5); Neutrophils Absolute Auto 4.9 K/mm3 (1.3-6.7); Platelet Count Result 303 k/mm3 (150-375); Red Blood Count 4.19 M/mm3 (4.2-5.4); Red Cell Distribution Width 16.3 % (11.5-14.5); White Blood Count 8.2 K/mm3 (4.5-10.0)
[2022-03-22 06:13] LABS: INR 1.4; Prothrombin Time 16.4 Seconds (11.1-14.7)
[2022-03-22 06:14] LABS: Partial Thromboplastin Time 35.1 SECONDS (22.3-36.8)
[2022-03-22 06:16] LABS: Anion Gap 4 mmol/L (8-16); Blood Urea Nitrogen 30 mg/dL (7-17); Calcium 8.3 mg/dL (8.4-10.2); Carbon Dioxide 29 mmol/L (22-30); Chloride 99 mmol/L (98-107); Estimated Glomerular Filt Rate 48; Glucose 89 mg/dL (65-110); Potassium 4.2 mmol/L (3.4-5.0); Sodium 132 mmol/L (137-145)
--- NOTE | 2022-03-22 08:53 | ECG_ITS ---
Measurements Intervals [place] Rate: 63 P: 45 CA: 173 QRS: -32 QRSD: 106 T: -12 QT: 438 QTc: 449 Interpretive Statements SINUS RHYTHM MARKED LEFT AXIS DEVIATION [QRS AXIS < -30] ABNORMAL ECG COMPARED TO ECG 12/03/2020 16:43:04 LEFT-AXIS DEVIATION NOW PRESENT Electronically Signed On 03-23-2022 7:09:57 CDT by Jay Alcantar M.D.
[2022-03-22] MEDS: ACETAMINOPHEN 325 MG TABLET 650 MG PO (10:22)
[2022-03-22] MEDS: BENZONATATE 100 MG CAPSULE 200 MG PO (10:24)
[2022-03-22] MEDS: predniSONE 5 MG TABLET PO ×2 (10:24→18:15)
[2022-03-22] MEDS: MAGNESIUM OXIDE 400 MG TABLET 800 MG PO (10:24)
[2022-03-22] MEDS: MONTELUKAST SODIUM 10 MG TABLET PO (10:24)
[2022-03-22] MEDS: DULoxetine HCL 60 MG CAPSULE.DR PO (10:25)
[2022-03-22] MEDS: PANTOPRAZOLE 40 MG TABLET PO (10:25)
[2022-03-22] MEDS: ASCORBIC ACID 500 MG TABLET PO (10:25)
[2022-03-22] MEDS: APIXABAN 5 MG TABLET PO (10:25)
[2022-03-22] MEDS: CYANOCOBALAMIN 1,000 MCG TABLET 2000 MCG PO (10:25)
[2022-03-22] MEDS: FOLIC ACID 1 MG TABLET PO (10:25)
[2022-03-22 10:26] VITALS: PULSE 52
[2022-03-22] MEDS: ACIDOPHILUS/BULGARICUS CHEWABLE TABLET 1 TABLET PO ×2 (10:26→18:15)
[2022-03-22] MEDS: FERROUS SULFATE 324 MG TABLET PO ×2 (10:26→18:15)
[2022-03-22] MEDS: CHOLECALCIFEROL 1,000 UNITS TABLET 1000 UNITS PO (10:26)
--- NOTE | 2022-03-22 11:04 | PCCCNOTE ---
On 03/22/22, the student, [Eloisa Andrade], provided care and completed [facility] documentation on this patient. I have reviewed the student's documentation and agree with the findings.
--- NOTE | 2022-03-22 13:05 | PM.IMPN ---
Progress Note: A&P Assessment and Plan (1) Abdominal pain: Code(s): R10.9 - Unspecified abdominal pain Status: Acute Assessment and Plan: patient presents to the outside hospital for abdominal pain and was admitted on 03/20/2022. She was found have elevated liver enzymes. She ultimately underwent MRCP which showed Intrahepatic and extrahepatic bile duct dilation with possible filling defect within the mid common bile duct. Right upper quadrant ultrasound showed gallbladder wall thickening. patient's white count was 11.4 on admission and 8.9 prior to antibiotics. The outside hospital was in touch with tertiary care center and IV Zosyn was recommended. Patient was transferred to our hospital for GI evaluation. Eliquis has been continued but will put that on hold in case ERCP is planned. Will start abx back again. She is allergic to Zosyn so will use Flagyl and Cipro (stop hydroxyzine and Zofran and hold duloxetine due to interactions). Keep NPO. Continue IV fluids. GI following. (2) Acute hepatitis: Code(s): B17.9 - Acute viral hepatitis, unspecified Status: Acute Assessment and Plan: LFTs elevated at the outside hospital. Will will check LFTs here. Will also add lipase and hepatitis panel and fractionated bili level. (3) Generalized weakness: Code(s): R53.1 - Weakness Status: Acute Assessment and Plan: Patient generalized weakness related to above. Will start PT and OT. (4) Afib: Code(s): I48.91 - Unspecified atrial fibrillation Status: Acute Assessment and Plan: Patient has a history of atrial fibrillation. EKG reviewed showing normal sinus rhythm and inferior T-wave inversion. continue Coreg. Will hold Eliquis as mentioned above. (5) Essential (primary) hypertension: Onset Date: 02/13/13 Code(s): I10 - Essential (primary) hypertension Status: Acute Assessment and Plan: Patient's blood pressure was reviewed on 03/22 Blood pressure remains well controlled. Will continue current medications. (6) COPD (chronic obstructive pulmonary disease): Onset Date: 02/13/13 Code(s): J44.9 - Chronic obstructive pulmonary disease, unspecified Status: Acute Assessment and Plan: Patient with diffuse expiratory wheezes. She has albuterol and Atrovent p.r.n.. Continue to follow. (7) Polymyalgia rheumatica: Onset Date: 02/13/13 Code(s): M35.3 - Polymyalgia rheumatica Status: Acute Assessment and Plan: Patient with PMR. She is on chronic steroid use for this. Continue the same for now. Do not feel stress dose steroids are required at this time. (8) Parkinsons disease: Code(s): G20 - Parkinson's disease Status: Acute Assessment and Plan: Stable. Sinemet not noted on her home medications. Start PT and OT Subjective Date/time seen: 03/22/22 13:05 Interval history: 76yo female with CHF, PMR on chronic steroids, JABIER, COPD, and pAFib transferred for abdominal pain. Assuming care. Chart reviewed. Patient feels tired today. Abdominal pain is better. She denies any chest pain. Her shortness of breath. She does have chronic wheezing. She had a bowel movement today. No nausea or vomiting. Exam Narrative: AF 97.6 134/64 52 20 95% ra Gen - NARD Lying semi recumbent in bed Chest - diffuse mild expiratory wheezes. Normal respiratory rate. CV - RRR S1/S2 Abd - Soft. Obese. Diffusely tender with voluntary guarding. Ext - Enlarged lower extremity without marty pitting pedal edema. Psych - Nml mood and affect Skin - Warm and dry. Multiple areas of ecchymosis noted the bilateral lower extremities. Objective Data Vital Signs Vital Signs: Vital Signs - 24 hr 03/21/22 23:32 03/21/22 23:43 03/22/22 06:00 Temperature 97.8 F 97.6 F Pulse Rate 55 L 54 L Respiratory Rate 20 20 Blood Pressure 120/63 134/6
--- NOTE | 2022-03-22 13:44 | WPDGICN ---
Assessment and Plan Assessment and plan (1) Choledocholithiasis: Code(s): K80.50 - Calculus of bile duct without cholangitis or cholecystitis without obstruction Status: Acute Assessment and Plan: MRCP reviewed, will proceed with ercp tomorrow and also consult surgery given GB findings, may need interval cholecystectomy on abx monitor liver enzymes (2) Elevated liver enzymes: Code(s): R74.8 - Abnormal levels of other serum enzymes Status: Acute Assessment and Plan: probably biliary related monitor (3) Cholecystitis: Code(s): K81.9 - Cholecystitis, unspecified Status: Acute Assessment and Plan: on abx (4) Abdominal pain: Code(s): R10.9 - Unspecified abdominal pain Status: Acute Assessment and Plan: medical support (5) Parkinsons disease: Code(s): G20 - Parkinson's disease Status: Acute (6) Polymyalgia rheumatica: Onset Date: 02/13/13 Code(s): M35.3 - Polymyalgia rheumatica Status: Acute GI Consult Note Consult date/time: 03/22/22 13:44 Reason for consult: abdominal pain, elevated liver enzymes, choledocholithiasis HPI: Leyda Arriaga is a 76 year old female with h/o PMR on steroid, HTN, COPD, anticoagulation with eliquis and other comorbidities who has been on rehab since June last year after she fell. She says that for last 3 weeks has been experiencing intermittent upper abdominal pain that yesterday got severe and finally taken to outside ER. She was found have elevated liver enzymes with bili 1.7, ast 557, alt 356, lipase 34, wbc 8.9, hb 12.9, coivd negative. .? She ultimately underwent MRCP which showed intrahepatic and extrahepatic bile duct dilation with possible filling defect within the mid common bile duct.? Right upper quadrant ultrasound showed gallbladder wall thickening. I wa called yesterday by provider for a transfer and admitted to hospitalist team since other facility does not have GI coverage. Today she is feeling better, still some pain. Denies eoth use, no previous pancreatitis or GB problem. Review of Systems Constitutional: Constitutional: Denies chills Eyes: Eyes: Reports no additional eye complaints ENT: Reports Normal hearing present Cardiovascular: Cardiovascular: Denies chest pain Respiratory: Respiratory: Denies cough Gastrointestinal: Gastrointestinal: Reports abdominal pain Musculoskeletal: Comments: can not walk Neurologic: Denies headache(s) Psychiatric: Psychiatric: Denies confusion [facility] Past Medical History Medical History (Updated 03/22/22 @ 13:51 by Chris Campbell MD) Afib Bladder spasms Cellulitis Cholecystitis Choledocholithiasis Depression Elevated liver enzymes GERD (gastroesophageal reflux disease) HLD (hyperlipidemia) Polymyalgia Vitamin D deficiency Surgical History Surgical History H/O removal of cyst History of partial hysterectomy Total knee replacement status Family History Family History (Updated 03/22/22 @ 02:52 by Allison Lopez RN) Other Unknown family medical history Social History Social History Smoking packs per day: 1 Smoking cigarettes per day: 20.0 Years smoked: 30 Smoking pack-years: 30.00 Smoking status: Never smoker Tobacco type: cigarettes Alcohol intake: never Substance use: never Gender identity (if verbalized by the patient): Female Sexual Orientation (if Verbalized by the Patient): Straight or Heterosexual Spiritual care concerns: No Meds Home Medications and Allergies Home Medications Medication Instructions Recorded Confirmed Type lovastatin 40 mg tablet 40 mg PO QPM 09/10/20 03/21/22 History montelukast 10 mg tablet 10 mg PO DAILY 09/10/20 03/21/22 History omeprazole 40 mg capsule,delayed 40 mg PO DAILY 09/10/20 03/21/22 History rel
[2022-03-22 14:12] LABS: Ammonia < 9 umol/L (9-30)
[2022-03-22 14:23] LABS: Bilirubin Indirect 0.4 mg/dL (0-1.1)
[2022-03-22 14:25] LABS: Iron 170 ug/dL (37-170)
[2022-03-22 14:35] LABS: Percent Iron Saturation 62 % (20-50)
[2022-03-22 15:05] LABS: Alanine Aminotransferase 215 U/L (6-35); Albumin Level 2.8 g/dL (3.5-5.1); Alkaline Phosphatase 377 U/L (38-126); Aspartate Amino Transferase 259 U/L (14-36); Bilirubin,Total 0.6 mg/dL (0.2-1.3); CRP 3.1 mg/dL (<1.0); Lipase 26 U/L (23-300)
[2022-03-22 15:30] VITALS: BP 150/43; PULSE 65; RESP 16; TEMP 36.4; O2SAT 90
[2022-03-22] MEDS: CIPROFLOXACIN 400 MG/D5W 200ML 200 ML 200 MG IVPB (15:36)
[2022-03-22] MEDS: metroNIDAZOLE 500 MG/ISO 100ML 500 MG/100 ML BAG 100 MG IVPB ×2 (15:36→22:47)
[2022-03-22 16:28] LABS: Hepatitis B Surface Antigen Negative (Negative)
[2022-03-22 16:34] LABS: HAV RESULT Negative (Negative); Hepatitis B Core IgM Result Negative (Negative)
[2022-03-22 16:45] LABS: Hepatitis B Surface Anti Res Negative; Hepatitis C Virus Antibody Negative (Negative)
[2022-03-22 17:30] LABS: Folic Acid > 20.0 ng/mL (2.76->20); Vitamin B12 > 1000.0 pg/mL (239-931)
[2022-03-22] MEDS: LOVASTATIN 20 MG TABLET 40 MG PO (18:15)
[2022-03-22 19:36] VITALS: BP 148/52; PULSE 58; RESP 16; TEMP 36.1; O2SAT 100
[2022-03-22 20:47] VITALS: PULSE 58
[2022-03-22] MEDS: carvediloL 6.25 MG TABLET PO (20:47)
--- NOTE | 2022-03-22 22:10 | PCRCNOTE ---
pt refused cpap tonight.
[2022-03-23] VITALS (13 sets, daily range): BP systolic 118–165; BP diastolic 41–84; PULSE 42–60; RESP 14–18; TEMP 36.2–36.6; O2SAT 95–100; BMI 39.8
[2022-03-23] MEDS: ACETAMINOPHEN 325 MG TABLET 650 MG PO (00:02)
[2022-03-23] MEDS: CIPROFLOXACIN 400 MG/D5W 200ML 200 ML 200 MG IVPB ×2 (02:21→15:01)
[2022-03-23 05:43] LABS: Basophils Absolute Auto 0.1 K/mm3 (0.0-0.1); Basophils Percent Auto 0.8 % (0.2-1.2); Eosinophils Absolute Auto 0.1 K/mm3 (0-0.3); Eosinophils Percent Auto 1.2 % (0-4.4); Hemoglobin 11.4 g/dL (12.0-15.0); Immature Granulocyte Absolute 0.02 K/mm3 (0.00-0.031); Immature Granulocyte Percent A 0.3 % (0-0.5); Lymphocytes Absolute Auto 1.88 K/mm3 (0.9-3.2); Lymphocytes Percent Auto 28.5 % (18.3-44.2); Mean Corpuscular HGB Conc 32.6 g/dl (32-36); Mean Corpuscular Hemoglobin 29.4 pg (26-34); Mean Corpuscular Volume 90.2 fl (80-100); Mean Platelet Volume 8.9 fl (7.4-10.4); Monocytes Absolute Auto 0.6 K/mm3 (0.1-0.6); Monocytes Percent Auto 8.8 % (2.6-8.5); Neutrophils Percent Auto 60.4 % (45.5-73.1); Platelet Count Result 246 k/mm3 (150-375); Red Blood Count 3.88 M/mm3 (4.2-5.4); Red Cell Distribution Width 15.9 % (11.5-14.5); White Blood Count 6.6 K/mm3 (4.5-10.0)
[2022-03-23] MEDS: metroNIDAZOLE 500 MG/ISO 100ML 500 MG/100 ML BAG 100 MG IVPB ×3 (05:45→21:24)
[2022-03-23 06:01] LABS: Alanine Aminotransferase 171 U/L (6-35); Albumin Level 2.8 g/dL (3.5-5.1); Alkaline Phosphatase 351 U/L (38-126); Anion Gap 3 mmol/L (8-16); Aspartate Amino Transferase 175 U/L (14-36); Bilirubin,Total 0.4 mg/dL (0.2-1.3); Blood Urea Nitrogen 19 mg/dL (7-17); Calcium 8.5 mg/dL (8.4-10.2); Carbon Dioxide 29 mmol/L (22-30); Chloride 102 mmol/L (98-107); Estimated CRCL calculation 62 ml/min; Estimated Glomerular Filt Rate > 60; Glucose 89 mg/dL (65-110); Phosphorus 3.3 mg/dL (2.5-4.5); Potassium 4.2 mmol/L (3.4-5.0); Sodium 134 mmol/L (137-145)
[2022-03-23] MEDS: MORPHINE SULFATE (*CRX) 2 MG/ML INJ IV PUSH (06:31)
[2022-03-23] MEDS: CHOLECALCIFEROL 1,000 UNITS TABLET 1000 UNITS PO (09:24)
[2022-03-23] MEDS: carvediloL 6.25 MG TABLET PO ×2 (09:24→21:23)
[2022-03-23] MEDS: ACIDOPHILUS/BULGARICUS CHEWABLE TABLET 1 TABLET PO ×2 (09:25→17:03)
[2022-03-23] MEDS: FOLIC ACID 1 MG TABLET PO (09:25)
[2022-03-23] MEDS: CYANOCOBALAMIN 1,000 MCG TABLET 2000 MCG PO (09:25)
[2022-03-23] MEDS: PANTOPRAZOLE 40 MG TABLET PO (09:25)
[2022-03-23] MEDS: predniSONE 5 MG TABLET PO ×2 (09:25→17:04)
[2022-03-23] MEDS: ASCORBIC ACID 500 MG TABLET PO (09:25)
[2022-03-23] MEDS: MIDODRINE HCL 2.5 MG TABLET 5 MG PO (09:25)
[2022-03-23] MEDS: MAGNESIUM OXIDE 400 MG TABLET 800 MG PO (09:25)
[2022-03-23] MEDS: FERROUS SULFATE 324 MG TABLET PO ×2 (09:25→17:03)
[2022-03-23] MEDS: MONTELUKAST SODIUM 10 MG TABLET PO (09:26)
[2022-03-23] MEDS: LACTATED RINGERS 1,000 ML 150 ML IV CONT (11:04)
--- NOTE | 2022-03-23 11:27 | WPDANESEPPF ---
Anes - Initial Pre Proc Eval Procedure: Operation Date: 03/23/22 16:00 Proposed Procedures p Endoscopic Retro Cholangiopancreatogram - Chris Campbell MD Date/Time: 03/23/22 11:27 Surgeon: Jonathan Corbin MD Pre Op Diagnosis: Choledocholithiasis Patient Data Age: 76 Gender: F Height: 1.63 m Weight: 105.2 kg Last Vital Signs Temp 97.3 F L 03/23/22 11:02 Pulse 50 L 03/23/22 11:02 Resp 16 03/23/22 11:02 BP 146/41 H 03/23/22 11:02 Pulse Ox 100 03/23/22 11:02 O2 Del Method Room Air 03/23/22 11:02 Allergies Allergy/AdvReac Type Severity Reaction Status Date / Time Sulfa (Sulfonamide Allergy Severe Weakness Verified 03/23/22 10:57 Antibiotics) piperacillin [From Zosyn] Allergy Mild Rash Verified 03/23/22 10:57 tazobactam [From Zosyn] Allergy Mild Rash Verified 03/23/22 10:57 Iodinated Contrast Media Allergy Unknown Verified 03/23/22 10:57 Home Medications Medication Instructions Recorded Confirmed Type lovastatin 40 mg tablet 40 mg PO QPM 09/10/20 03/21/22 History montelukast 10 mg tablet 10 mg PO DAILY 09/10/20 03/21/22 History omeprazole 40 mg capsule,delayed 40 mg PO DAILY 09/10/20 03/21/22 History release cholecalciferol (vitamin D3) 25 25 mcg PO DAILY #90 caps 10/07/20 03/21/22 Rx mcg (1,000 unit) capsule folic acid 1 mg tablet 1 mg PO DAILY #30 tabs 11/07/20 03/21/22 Rx duloxetine 60 mg capsule,delayed 60 mg PO DAILY #60 caps 12/06/20 03/21/22 Rx release Lactobacillus acidophilus 10 mg PO BID 03/21/22 03/21/22 History (Acidophilus capsule) acetaminophen 650 mg tablet 650 mg PO Q6H PRN Pain (Scale 03/21/22 03/21/22 History Score 1-3) apixaban 5 mg tablet 5 mg PO BID 03/21/22 03/21/22 History ascorbic acid (vitamin C) 500 mg 500 mg PO DAILY 03/21/22 03/21/22 History capsule benzonatate 200 mg capsule 200 mg PO TID PRN Cough 03/21/22 03/21/22 History bisacodyl 10 mg rectal suppository 10 mg RECTAL DAILY PRN Constipation 03/21/22 03/21/22 History carvedilol 6.25 mg tablet 6.25 mg PO BID 03/21/22 03/21/22 History cyanocobalamin (vitamin B-12) 2,000 mcg PO DAILY 03/21/22 03/21/22 History 2,000 mcg tablet ferrous sulfate 325 mg (65 mg 325 mg PO BID 03/21/22 03/21/22 History iron) tablet furosemide 20 mg tablet 20 mg PO DAILY 03/21/22 03/21/22 History hydrocodone 5 mg-acetaminophen 325 1 tablet PO Q4H PRN Pain (Scale 03/21/22 03/21/22 History mg tablet Score 7-10) hydroxyzine HCl 25 mg tablet 25 mg PO TID PRN Itching 03/21/22 03/21/22 History ipratropium 0.5 mg-albuterol 3 mg 3 ml inhalation Q6H PRN Shortness 03/21/22 03/21/22 History (2.5 mg base)/3 mL nebulization Of Breath Or Wheezing soln magnesium 200 mg tablet 800 mg PO DAILY 03/21/22 03/21/22 History magnesium hydroxide 400 mg/5 mL 30 ml PO DAILY PRN Constipation 03/21/22 03/21/22 History oral suspension (Milk of Magnesia) midodrine 2.5 mg tablet 5 mg PO TID PRN Hypotension 03/21/22 03/21/22 History potassium chloride 20 mEq 20 meq PO DAILY 03/21/22 03/21/22 History tablet,extended release prednisone 5 mg tablet 5 mg PO BID 03/21/22 03/21/22 History Laboratory Tests 03/22/22 03/22/22 03/22/22 13:59 13:59 13:59 WBC RBC Hgb Hct MCV MCH MCHC RDW Plt Count MPV Immature Gran % (Auto) Neut % (Auto) Lymph % (Auto) Rains % (Auto) Eos % (Auto) Baso % (Auto) Lymph # (Auto) Rains # (Auto) Eos # (Auto) Baso # (Auto) Abs Immat Gran (auto) Absolute Neuts (auto) Absolute Nucleated RBC Nucleated RBC % Sodium Potassium Chloride Carbon Dioxide Anion Gap BUN Creatinine Estim Creat Clear Calc
[2022-03-23] MEDS: INDOMETHACIN 50 MG SUPP.RECT RECTAL (11:43)
--- NOTE | 2022-03-23 13:51 | PM.CNGS ---
Assessment and Plan Assessment and plan (1) Cholecystitis: Code(s): K81.9 - Cholecystitis, unspecified Status: Acute Assessment and Plan: Patient initially presented to an [facility] hospital with abdominal pain on 03/20/22 with findings of elevated LFTs and evidence of possible choledocholithiasis and cholecystitis. CT scan, RUQ abdominal ultrasound, and MRCP results were reviewed in the patient's paper chart. Ultrasound showed gallbladder wall thickening with sludge and subcentimeter calculi. MRCP suggested intrahepatic and extrahepatic biliary duct dilatation with a possible filling defect in the mid common bile duct. Hospitalist and GI accepted her in transfer and she underwent ERCP today with findings of sludge in the common bile duct. WBC normal and LFTs are trending down. We would recommend proceeding with a laparoscopic cholecystectomy, possible open, by Dr. Membreno under general anesthesia to prevent recurrent or future complications of the sludge or small gallstones. I discussed with the patient that she is a higher risk surgical candidate given her multiple co-morbidities, anticoagulation, and limited mobility. Her Eliquis has been held since yesterday morning, therefore we could proceed with surgery tomorrow rather than having her hold her Eliquis at a later date to do this as an outpatient. Description of the procedure, risks, benefits, expected outcomes, and expected recovery were discussed with the patient in detail. All questions were answered. She agrees to proceed. Will make her NPO after midnight. Continue to hold Eliquis. Thank you for allowing us to see the patient in consultation. (2) Choledocholithiasis: Code(s): K80.50 - Calculus of bile duct without cholangitis or cholecystitis without obstruction Status: Acute Assessment and Plan: S/p ERCP today with sphincterotomy, sweeping of common bile duct of sludge but no stones, and stent placement in the pancreatic duct. (3) Elevated liver enzymes: Code(s): R74.8 - Abnormal levels of other serum enzymes Status: Acute Assessment and Plan: Elevated LFTs at [place], which are trending down. Likely related to passage of small stones/sludge. S/p ERCP today. Trend labs. (4) Polymyalgia rheumatica: Onset Date: 02/13/13 Code(s): M35.3 - Polymyalgia rheumatica Status: Chronic Assessment and Plan: Takes Prednisone daily. (5) Afib: Code(s): I48.91 - Unspecified atrial fibrillation Status: Chronic Assessment and Plan: Paroxysmal atrial fibrillation. EKG showed sinus rhythm on admission. Regular rate and rhythm on exam. (6) Anticoagulant long-term use: Code(s): Z79.01 - group home (current) use of anticoagulants Status: Acute Assessment and Plan: Continue to hold Eliquis for surgery tomorrow. (7) Immobility: Code(s): Z74.09 - Other reduced mobility Status: Acute Assessment and Plan: S/p fall in June 2021 resulting in right femur fracture. She reportedly has undergone 4 surgeries related to the fracture and has been non-ambulatory since her initial surgery. She is primarily wheelchair bound and now resides in [facility]. (8) Heart failure with preserved ejection fraction: Code(s): I50.30 - Unspecified diastolic (congestive) heart failure Status: Chronic (9) GERD (gastroesophageal reflux disease): Code(s): K21.9 - Gastro-esophageal reflux disease without esophagitis Status: Acute (10) JABIER (obstructive sleep apnea): Code(s): G47.33 - Obstructive sleep apnea (adult) (pediatric) Status: Chronic Assessment and Plan: Noncompliant with CPAP use. Plan I have discussed the patient's case and plan of care with Dr. Membreno. History of Present Illness Consult details Consult date: 03/23/22 Reason for consult: gallstones (choledocholithiasis, elevated LFTs) Requesting physician: Hesham
[2022-03-23] MEDS: DEXTROSE 5%/0.45% SOD CHL 1,000 ML 100 ML IV CONT (15:02)
--- NOTE | 2022-03-23 15:13 | PM.IMPN ---
Progress Note: A&P Assessment and Plan (1) Abdominal pain: Code(s): R10.9 - Unspecified abdominal pain Status: Acute Assessment and Plan: Patient presents to the outside hospital for abdominal pain and was admitted on 03/20/2022. She was found have elevated liver enzymes. She ultimately underwent MRCP which showed intrahepatic and extrahepatic bile duct dilation with possible filling defect within the mid common bile duct. Right upper quadrant ultrasound showed gallbladder wall thickening. Patient's white count was 11.4 on admission and 8.9 prior to antibiotics. The outside hospital was in touch with tertiary care center and IV antibiotics were recommended. Patient was transferred to our hospital for GI evaluation. Eliquis was stopped. She was started on abx with Flagyl and Cipro. ERCP performed today showing Normal esophagus, stomach and duodenum. There was some difficulty cannulating the bile duct but this was able to be performed. Bile duct was dilated. No definitive filling defects. Sphincterotomy was performed. Balloon sweep only remove small amount of sludge but no stones. Patient also had pancreatic stent placement and a sphincterotomy of the pancreatic sphincter. General surgery has been consulted for possible cholecystectomy. Eliquis to remain on hold. (2) Acute hepatitis: Code(s): B17.9 - Acute viral hepatitis, unspecified Status: Acute Assessment and Plan: LFTs elevated on presentation to the outside hospital. LFTs repeated here showing improvement. LFTs trending downward. Bili remaining normal. Iron studies showing saturation 62% but ferritin is normal. Lipase remains normal. Hepatitis panel negative. Consider related to transient bile duct obstruction versus acute hepatitis from unclear etiology. Continue to follow. Appreciate GI input. (3) Generalized weakness: Code(s): R53.1 - Weakness Status: Acute Assessment and Plan: Patient generalized weakness related to above. Continue PT and OT. (4) Afib: Code(s): I48.91 - Unspecified atrial fibrillation Status: Chronic Assessment and Plan: Patient has a history of atrial fibrillation. EKG reviewed showing normal sinus rhythm and inferior T-wave inversion. Bradycardic at times. Continue Coreg. Eliquis on hold. Check APnea link (5) Essential (primary) hypertension: Onset Date: 02/13/13 Code(s): I10 - Essential (primary) hypertension Status: Acute Assessment and Plan: Patient's blood pressure was reviewed on 03/23 Blood pressure elevated at times. Will continue current medications for now. (6) COPD (chronic obstructive pulmonary disease): Onset Date: 02/13/13 Code(s): J44.9 - Chronic obstructive pulmonary disease, unspecified Status: Acute Assessment and Plan: Lug exam improved. She has albuterol and Atrovent p.r.n.. Continue to follow. (7) Polymyalgia rheumatica: Onset Date: 02/13/13 Code(s): M35.3 - Polymyalgia rheumatica Status: Chronic Assessment and Plan: Patient with PMR. She is on chronic steroid use for this. Continue the same for now. Do not feel stress dose steroids are required at this time. (8) Parkinsons disease: Code(s): G20 - Parkinson's disease Status: Acute Assessment and Plan: Stable. Sinemet not noted on her home medications. Continue PT and OT Subjective Date/time seen: 03/23/22 15:14 Interval history: 76yo female with CHF, PMR on chronic steroids, JABIER, COPD, and pAFib transferred for abdominal pain. Patient is back from ERCP. Her abdominal pain overall has improved. She feels nauseous but no vomiting. She has not eaten today yet. She is passing flatus. No diarrhea. No chest pain. She has a history of C difficile colitis. Exam Narrative: AF 97.2 165/54 42 14 95% ra Gen - NARD Chest - lungs clear ante
[2022-03-23] MEDS: LOVASTATIN 20 MG TABLET 40 MG PO (17:04)
[2022-03-23] MEDS: HYDROcodone/acetaminophen (*CRX) 5-325 MG TABLET 1 TAB PO ×2 (17:05→21:23)
--- NOTE | 2022-03-23 18:50 | PC.NURSE ---
pt 1400 vital signs for 03/23/2022 are: T: 97.2 P: 72 R: 18 O2: 98% BP: 153/61
[2022-03-24] VITALS (16 sets, daily range): BP systolic 150–199; BP diastolic 65–87; PULSE 52–65; RESP 14–18; TEMP 36.2–36.9; O2SAT 93–100
[2022-03-24] MEDS: CIPROFLOXACIN 400 MG/D5W 200ML 200 ML 200 MG IVPB ×2 (03:25→15:38)
[2022-03-24] MEDS: metroNIDAZOLE 500 MG/ISO 100ML 500 MG/100 ML BAG 100 MG IVPB ×3 (06:08→21:00)
[2022-03-24 06:14] LABS: Alanine Aminotransferase 157 U/L (6-35); Alkaline Phosphatase 342 U/L (38-126); Anion Gap 5 mmol/L (8-16); Aspartate Amino Transferase 172 U/L (14-36); Bilirubin,Total 0.5 mg/dL (0.2-1.3); Blood Urea Nitrogen 15 mg/dL (7-17); Calcium 8.7 mg/dL (8.4-10.2); Carbon Dioxide 26 mmol/L (22-30); Chloride 104 mmol/L (98-107); Estimated CRCL calculation 62 ml/min; Estimated Glomerular Filt Rate > 60; Glucose 104 mg/dL (65-110); Potassium 4.1 mmol/L (3.4-5.0); Sodium 135 mmol/L (137-145)
[2022-03-24] MEDS: MORPHINE SULFATE (*CRX) 2 MG/ML INJ IV PUSH ×2 (08:52→17:13)
[2022-03-24] MEDS: MAGNESIUM OXIDE 400 MG TABLET 800 MG PO (08:53)
[2022-03-24] MEDS: ASCORBIC ACID 500 MG TABLET PO (08:54)
[2022-03-24] MEDS: PANTOPRAZOLE 40 MG TABLET PO (08:54)
[2022-03-24] MEDS: MONTELUKAST SODIUM 10 MG TABLET PO (08:54)
[2022-03-24] MEDS: carvediloL 6.25 MG TABLET PO ×2 (08:54→21:00)
[2022-03-24] MEDS: FERROUS SULFATE 324 MG TABLET PO ×2 (08:54→17:07)
[2022-03-24] MEDS: CHOLECALCIFEROL 1,000 UNITS TABLET 1000 UNITS PO (08:54)
[2022-03-24] MEDS: ACIDOPHILUS/BULGARICUS CHEWABLE TABLET 1 TABLET PO ×2 (08:55→17:07)
[2022-03-24] MEDS: FOLIC ACID 1 MG TABLET PO (08:55)
[2022-03-24] MEDS: CYANOCOBALAMIN 1,000 MCG TABLET 2000 MCG PO (08:55)
[2022-03-24] MEDS: predniSONE 5 MG TABLET PO ×2 (08:55→17:08)
--- NOTE | 2022-03-24 09:57 | PM.IMPN ---
Progress Note: A&P Assessment and Plan (1) Cholecystitis: Code(s): K81.9 - Cholecystitis, unspecified Status: Acute Assessment and Plan: Patient admitted on 03/20/2022 from outside hospital for complaints of abdominal pain. She was found have elevated liver enzymes. She ultimately underwent MRCP which showed intrahepatic and extrahepatic bile duct dilation with possible filling defect within the mid common bile duct. Right upper quadrant ultrasound showed gallbladder wall thickening. Patient's white count was 11.4 on admission and 8.9 prior to antibiotics. The outside hospital was in touch with tertiary care center and IV antibiotics were recommended. Patient was transferred to our hospital for GI evaluation. Eliquis was stopped. She was started on abx with Flagyl and Cipro. ERCP performed 03/23 showing normal esophagus, stomach and duodenum. There was some difficulty cannulating the bile duct but this was able to be performed. Bile duct was dilated. No definitive filling defects. Sphincterotomy was performed. Balloon sweep only removed small amount of sludge but no stones. Patient also had pancreatic stent placement and a sphincterotomy of the pancreatic sphincter. General surgery was consulted and will perform laparoscopic cholecystectomy, possibly open, this afternoon. Continue gentle fluids while NPO for procedure. (2) Choledocholithiasis: Code(s): K80.50 - Calculus of bile duct without cholangitis or cholecystitis without obstruction Status: Acute Assessment and Plan: As above (3) Acute hepatitis: Code(s): B17.9 - Acute viral hepatitis, unspecified Status: Acute Assessment and Plan: LFTs elevated on presentation to the outside hospital. LFTs repeated here showed improvement with continued downward trend. Total bilirubin remains normal. Iron studies showing saturation 62% but ferritin is normal. Lipase remains normal. Hepatitis panel negative. Consider related to transient bile duct obstruction versus acute hepatitis from unclear etiology. Continue to follow. Appreciate GI input. (4) Generalized weakness: Code(s): R53.1 - Weakness Status: Acute Assessment and Plan: Likely due to acute issues above as well as overall physical deconditioning. Patient reports she has been nonambulatory since femur fracture in June. Appreciate PT and OT evaluation (5) Afib: Code(s): I48.91 - Unspecified atrial fibrillation Status: Chronic Assessment and Plan: Patient has a history of paroxysmal atrial fibrillation. EKG reviewed showing normal sinus rhythm and inferior T-wave inversion. Rate has been controlled, mildly bradycardic at times. Continue Coreg. Eliquis on hold. ApneaLink reviewed and was unremarkable few apneic episodes and stable heart rate. (6) Essential (primary) hypertension: Onset Date: 02/13/13 Code(s): I10 - Essential (primary) hypertension Status: Acute Assessment and Plan: Patient's blood pressure was reviewed on 03/24. Last BP 150/75. Will continue current medications. (7) COPD (chronic obstructive pulmonary disease): Onset Date: 02/13/13 Code(s): J44.9 - Chronic obstructive pulmonary disease, unspecified Status: Acute Assessment and Plan: Lungs are clear to auscultation. Continue albuterol and Atrovent p.r.n. (8) Polymyalgia rheumatica: Onset Date: 02/13/13 Code(s): M35.3 - Polymyalgia rheumatica Status: Chronic Assessment and Plan: Patient with PMR. She is on chronic steroid use for this. Continue prednisone 5 mg BID. Do not feel stress dose steroids are required at this time. (9) Parkinsons disease: Code(s): G20 - Parkinson's disease Status: Acute Assessment and Plan: Stable. Sinemet not noted on her home medications. Continue PT and OT (10) JABIER (obstructive sleep apnea):
--- NOTE | 2022-03-24 11:34 | WPDANESPN ---
Anes - Prog Note Post-Op Date/Time: 03/24/22 11:34 Cardiovascular status: normal Respiratory status: normal and other Airway patency: baseline Mental status: baseline Post-Op hydration status: normal Vital Signs: Last Vital Signs Temp 36.2 C L 03/24/22 05:21 Pulse 58 L 03/24/22 08:54 Resp 18 03/24/22 05:21 BP 150/75 H 03/24/22 05:21 Pulse Ox 96 03/24/22 05:21 O2 Del Method Room Air 03/24/22 10:34 O2 Flow Rate 6 03/23/22 12:50 FiO2 03/23/22 22:50 Pain Score (VAS): 810, Pt having Laparoscopic cholecystectomy today I/O: Intake & Output 03/23/22 03/24/22 03/24/22 23:59 07:59 15:59 Intake Total 862 1200 Output Total 350 450 225 Balance 512 750 -225 Laboratory Tests 03/23/22 05:22 03/24/22 05:46 03/24/22 03/24/22 03/24/22 05:46 05:46 05:46 Sodium 135 L Potassium 4.1 Chloride 104 Carbon Dioxide 26 Anion Gap 5 L BUN 15 Creatinine 0.80 Estim Creat Clear Calc 62 Estimated GFR > 60 Glucose 104 Calcium 8.7 Total Bilirubin 0.5 AST 172 H ALT 157 H Alkaline Phosphatase 342 H Total Protein 7.0 Albumin 3.0 L Her Hemochromatosis PCR Pending Blood Type O Negative Antibody Screen Negative Patient Feedback: Patient satisfied with anesthetic care.
[2022-03-24] MEDS: LACTATED RINGERS 1,000 ML 30 ML IV CONT (13:20)
--- NOTE | 2022-03-24 13:25 | WPDANESEPPF ---
Anes - Initial Pre Proc Eval Procedure: Operation Date: 03/23/22 16:00 Proposed Procedures p Endoscopic Retro Cholangiopancreatogram - Chris Campbell MD Operation Date: 03/24/22 14:30 Proposed Procedures p Laparoscopic Cholecystectomy,Possible Open - Mazin Membreno DO Date/Time: 03/24/22 13:25 Surgeon: Angeles Powell PA-C Pre Op Diagnosis: Choledocholithiasis Patient Data Age: 76 Gender: F Height: 1.63 m Weight: 105.2 kg Last Vital Signs Temp 36.2 C L 03/24/22 05:21 Pulse 58 L 03/24/22 08:54 Resp 18 03/24/22 05:21 BP 150/75 H 03/24/22 05:21 Pulse Ox 96 03/24/22 05:21 O2 Del Method Room Air 03/24/22 10:34 O2 Flow Rate 6 03/23/22 12:50 FiO2 21 03/23/22 22:50 Allergies Allergy/AdvReac Type Severity Reaction Status Date / Time Sulfa (Sulfonamide Allergy Severe Weakness Verified 03/23/22 10:57 Antibiotics) piperacillin [From Zosyn] Allergy Mild Rash Verified 03/23/22 10:57 tazobactam [From Zosyn] Allergy Mild Rash Verified 03/23/22 10:57 Iodinated Contrast Media Allergy Unknown Verified 03/23/22 10:57 Home Medications Medication Instructions Recorded Confirmed Type lovastatin 40 mg tablet 40 mg PO QPM 09/10/20 03/21/22 History montelukast 10 mg tablet 10 mg PO DAILY 09/10/20 03/21/22 History omeprazole 40 mg capsule,delayed 40 mg PO DAILY 09/10/20 03/21/22 History release cholecalciferol (vitamin D3) 25 25 mcg PO DAILY #90 caps 10/07/20 03/21/22 Rx mcg (1,000 unit) capsule folic acid 1 mg tablet 1 mg PO DAILY #30 tabs 11/07/20 03/21/22 Rx duloxetine 60 mg capsule,delayed 60 mg PO DAILY #60 caps 12/06/20 03/21/22 Rx release Lactobacillus acidophilus 10 mg PO BID 03/21/22 03/21/22 History (Acidophilus capsule) acetaminophen 650 mg tablet 650 mg PO Q6H PRN Pain (Scale 03/21/22 03/21/22 History Score 1-3) apixaban 5 mg tablet 5 mg PO BID 03/21/22 03/21/22 History ascorbic acid (vitamin C) 500 mg 500 mg PO DAILY 03/21/22 03/21/22 History capsule benzonatate 200 mg capsule 200 mg PO TID PRN Cough 03/21/22 03/21/22 History bisacodyl 10 mg rectal suppository 10 mg RECTAL DAILY PRN Constipation 03/21/22 03/21/22 History carvedilol 6.25 mg tablet 6.25 mg PO BID 03/21/22 03/21/22 History cyanocobalamin (vitamin B-12) 2,000 mcg PO DAILY 03/21/22 03/21/22 History 2,000 mcg tablet ferrous sulfate 325 mg (65 mg 325 mg PO BID 03/21/22 03/21/22 History iron) tablet furosemide 20 mg tablet 20 mg PO DAILY 03/21/22 03/21/22 History hydrocodone 5 mg-acetaminophen 325 1 tablet PO Q4H PRN Pain (Scale 03/21/22 03/21/22 History mg tablet Score 7-10) hydroxyzine HCl 25 mg tablet 25 mg PO TID PRN Itching 03/21/22 03/21/22 History ipratropium 0.5 mg-albuterol 3 mg 3 ml inhalation Q6H PRN Shortness 03/21/22 03/21/22 History (2.5 mg base)/3 mL nebulization Of Breath Or Wheezing soln magnesium 200 mg tablet 800 mg PO DAILY 03/21/22 03/21/22 History magnesium hydroxide 400 mg/5 mL 30 ml PO DAILY PRN Constipation 03/21/22 03/21/22 History oral suspension (Milk of Magnesia) midodrine 2.5 mg tablet 5 mg PO TID PRN Hypotension 03/21/22 03/21/22 History potassium chloride 20 mEq 20 meq PO DAILY 03/21/22 03/21/22 History tablet,extended release prednisone 5 mg tablet 5 mg PO BID 03/21/22 03/21/22 History Laboratory Tests 03/24/22 03/24/22 03/24/22 05:46 05:46 05:46 Sodium 135 mmol/L L mmol/L (137-145) Potassium 4.1 mmol/L mmol/L (3.4-5.0) Chloride 104 mmol/L mmol/L (98-107) Carbon Dioxide 26 mmol/L mmol/L (22-30) Anion Gap 5 mmol/L L mmol/L (8-16) BUN 15 mg/dL mg/dL (7-17) Creatinine 0.80 mg/dL mg/dL (0.7-1.0) Estim Creat Clear Calc 62 ml/min ml/min Estimated GFR > 60 (59 - ) Glucose 104 mg/dL mg/dL (65-110) Calcium 8.7 mg/dL mg/dL (8.4-10.2) Total Bilirubin 0.5 mg/dL mg/dL (0.2-1.3) AST 172 U/L
--- NOTE | 2022-03-24 13:35 | WPDHPUPDATE1 ---
History and Physical Update Update Date/Time: 03/24/22 13:35 History and Physical has been reviewed, including an updated exam of the patient. There are NO changes in the patient's condition. Risks, benefits, and alternatives have been discussed and questions answered. Patient agrees to proceed with procedure.
--- NOTE | 2022-03-24 14:35 | WPDGIPROGNO ---
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 ERCP yesterday without stones, only small amount of debris, also placed PD stent Review of Systems Review of Systems: All systems reviewed & are unremarkable except as noted in HPI and below Exam Const: General: comfortable HENMT: General nose exam: Normal nares present Eyes: Sclera: sclerae normal Neck: Neck: supple Resp: Auscultation: clear to auscultation bilaterally Cardio: Rate: regular rate GI: GI Palp: Yes Soft to palpation, Yes Tenderness to palpation present (GI) (unchanged) and No Guarding due to palpation present (GI) Auscultation: normal bowel sounds Skin: General skin exam: normal color Neuro: Speech: normal speech Extrem: General: normal to inspection Psych: Affect: normal affect Objective Data Vital Signs Vital Signs: Vital Signs - 24 hr 03/23/22 19:38 03/23/22 21:23 03/24/22 05:21 Temperature 97.9 F 97.1 F L Pulse Rate 51 L 52 L 55 L Respiratory Rate 18 18 Blood Pressure 150/62 H 150/75 H Pulse Oximetry 95 96 Oxygen Delivery Fraction of Inspired Oxygen 03/23/22 22:50 03/24/22 08:54 03/24/22 10:34 Temperature Pulse Rate 58 L Respiratory Rate Blood Pressure Pulse Oximetry 96 Oxygen Delivery Room Air Room Air Fraction of Inspired Oxygen 03/24/22 08:30 03/24/22 13:11 Temperature 98.4 F Pulse Rate 56 L Respiratory Rate 18 Blood Pressure 154/65 H Pulse Oximetry 100 Oxygen Delivery Room Air Room Air Fraction of Inspired Oxygen Intake/Output Intake/Output: Intake & Output 03/21/22 03/22/22 03/23/22 03/24/22 23:59 23:59 23:59 23:59 Intake Total 3000 2502 1400 Output Total 600 1650 825 Balance 2400 852 575 Meds/Results Medications: Active Medications Generic Name Dose Route Start Last Admin Trade Name Freq PRN Reason Stop Dose Admin Acetaminophen 650 mg 03/22/22 05:01 03/23/22 00:02 Acetaminophen 325 Mg Tablet PO 650 mg Q6H PRN Administration Pain (Scale Score 1-3) Hydrocodone Bitart/Acetaminophen 1 tab 03/22/22 05:01 03/23/22 21:23 Hydrocodone/Acetaminophen (*Crx) 5-325 Mg Tablet PO 1 tab Q4H PRN Administration Pain (Scale Score 7-10) Albuterol 2.5 mg 03/22/22 05:23 Albuterol Sulfate Neb 2.5 Mg/0.5 Ml Inh INHALATION Q6H PRN Shortness Of Breath Or Wheezin Apixaban 5 mg 03/22/22 09:00 03/22/22 10:25 Apixaban 5 Mg Tablet PO 5 mg BID HAL Administration Ascorbic Acid 500 mg 03/22/22 09:00 03/24/22 08:54 Ascorbic Acid 500 Mg Tablet PO 500 mg DAILY HAL Administration Benzonatate 200 mg 03/22/22 05:01 03/22/22 10:24 Benzonatate 100 Mg Capsule PO 200 mg TID PRN Administration Cough Bisacodyl 10 mg 03/22/22 05:01 Bisacodyl 10 Mg Suppository RECTAL DAILY PRN Constipation Carvedilol 6.25 mg 03/22/22 09:00 03/24/22 08:54 Carvedilol 6.25 Mg Tablet PO 6.25
[2022-03-24] MEDS: HEMOSTATIC MATRIX (SURGIFLO with THROMBIN) KIT 1 KIT XX (14:40)
[2022-03-24] MEDS: LIDO 1%/EPINEPHRINE/PF 1:200,000 30 ML VIAL XX (14:43)
--- NOTE | 2022-03-24 15:03 | W.PM.PROC2 ---
Procedure Note - Detailed Date of Procedure 03/24/22 Pre-op Diagnosis Cholecystitis with cholelithiasis, Choledocholithiasis, elevated liver enzymes Post-op Diagnosis Same Procedure Performed Laparoscopic Cholecystectomy Surgeon Mazin Membreno, DO Anesthesia General and Local (0.5% bupivacaine) Indications This is a 76-year-old woman who was hospitalized up in [place] upper abdominal pain and elevated liver enzymes. MRCP showed evidence of choledocholithiasis and cholelithiasis will and she was transferred to [facility] for further treatment. She underwent ERCP yesterday and further discussions were made with the patient about treatment options and decision was made to proceed with laparoscopic cholecystectomy, possible open. Findings Laparoscopic cholecystectomy was performed. The gallbladder had a few pericholecystic adhesions and the gallbladder wall appeared slightly edematous. No stones were identified and the cystic duct appeared normal in size. The gallbladder was removed and sent to the lab for pathology. The patient did have some easy bleeding along the gallbladder fossa as the gallbladder was dissected off of the liver bed. This was controlled with spatula electrocautery and Surgiflo. No other significant abnormalities were noted. Description of Procedure Procedure as well as risks, benefits, and alternatives were discussed with patient. Written consent was obtained and placed in chart prior to procedure. The patient was brought back to surgical suite. Patient was placed in supine position on operating table. Time-out was done to confirm patient and procedure. Patient was then intubated by the anesthesia department. Abdomen was prepped and draped in sterile fashion using chlorhexidine prep. 0.5% bupivacaine with epinephrine was infiltrated at each site of incision. A 5 millimeter incision was made near the umbilicus, and a 5 millimeter Optiview trocar was advanced through the abdominal layers under direct visualization. Once inside the abdominal cavity, carbon dioxide was insufflated to create a pneumoperitoneum. The camera was inserted and the abdomen was inspected. No immediate abnormalities were identified. The patient was placed in reverse Trendelenburg position and rotated slightly to the left. An 11 millimeter incision was made in the subxiphoid region, and an 11 millimeter trocar was inserted under direct visualization. Two 5 millimeter incisions were made in the right upper quadrant, and two 5 millimeter trocars were inserted under direct visualization. The gallbladder was identified and grasped at the fundus and retracted superiorly. It was then grasped at the infundibulum retracted laterally. Careful dissection around the neck of the gallbladder was performed using blunt dissection with a [place] grasper and hook electrocautery. The cystic duct was identified, and a window was created behind it. The cystic artery was also identified and a window was created behind it. The critical view of safety was identified, visualizing the cystic duct running directly into the neck of the gallbladder, and the cystic artery running directly into the wall of the gallbladder. A 5 millimeter clip oracle hyperion consultant was then used to place 2 clips proximally and 1 clip distally on both the cystic duct and cystic artery. They were then both transected using endoscopic scissors. Once safely away from the rosendo hepatitis, the gallbladder was dissected free from the liver bed using hook electrocautery. Hemostasis was achieved along the way. The gallbladder was removed completely and then removed through the subxiphoid port. The liver bed was then inspected. Hemostasis appeared adequate, and our clips appeared secure. The area was gently irrigated with sterile saline. No other abnormalities were seen. The patient was flattened out in bed, and 1 final inspection was made around the abdominal cavity. The subxiphoid port was removed, and a Cart
[2022-03-24] MEDS: fentaNYL CITRATE INJ (*CRX) 100 MCG/2 ML VIAL 25 MCG IV PUSH ×4 (15:24→16:01)
--- NOTE | 2022-03-24 16:11 | SUR.PHASEI ---
Notified to Dr. Osorio of patient's SBP 190-200's. No new orders received.
[2022-03-24] MEDS: LOVASTATIN 20 MG TABLET 40 MG PO (17:08)
[2022-03-24] MEDS: HYDROcodone/acetaminophen (*CRX) 7.5-325 MG TABLET 1 TAB PO (20:55)
[2022-03-24] MEDS: MORPHINE SULFATE (*CRX) 4 MG/ML INJ IV PUSH (23:26)
[2022-03-25] VITALS (7 sets, daily range): BP systolic 133–141; BP diastolic 51–79; PULSE 60–66; RESP 16–19; TEMP 36.4–37.1; O2SAT 94–99
[2022-03-25] MEDS: HYDROcodone/acetaminophen (*CRX) 7.5-325 MG TABLET 1 TAB PO ×4 (00:53→20:11)
[2022-03-25] MEDS: CIPROFLOXACIN 400 MG/D5W 200ML 200 ML 200 MG IVPB ×2 (01:32→14:13)
[2022-03-25] MEDS: MORPHINE SULFATE (*CRX) 4 MG/ML INJ IV PUSH ×2 (01:32→08:57)
[2022-03-25 02:56] LABS: Hepatitis B Core Ab Total Nonreactive (Nonreactive)
[2022-03-25] MEDS: metroNIDAZOLE 500 MG/ISO 100ML 500 MG/100 ML BAG 100 MG IVPB ×3 (05:43→21:16)
[2022-03-25 05:46] LABS: Hemoglobin 12.7 g/dL (12.0-15.0); Mean Corpuscular HGB Conc 31.8 g/dl (32-36); Mean Corpuscular Volume 91.3 fl (80-100); Mean Platelet Volume 9.1 fl (7.4-10.4); Platelet Count Result 274 k/mm3 (150-375); Red Blood Count 4.38 M/mm3 (4.2-5.4); Red Cell Distribution Width 15.7 % (11.5-14.5); White Blood Count 12.5 K/mm3 (4.5-10.0)
[2022-03-25 05:58] LABS: Alanine Aminotransferase 152 U/L (6-35); Alkaline Phosphatase 333 U/L (38-126); Anion Gap 5 mmol/L (8-16); Aspartate Amino Transferase 161 U/L (14-36); Bilirubin,Total 0.5 mg/dL (0.2-1.3); Blood Urea Nitrogen 15 mg/dL (7-17); Calcium 8.2 mg/dL (8.4-10.2); Carbon Dioxide 25 mmol/L (22-30); Chloride 102 mmol/L (98-107); Estimated CRCL calculation 70 ml/min; Estimated Glomerular Filt Rate > 60; Glucose 107 mg/dL (65-110); Potassium 4.3 mmol/L (3.4-5.0); Sodium 132 mmol/L (137-145)
[2022-03-25] MEDS: predniSONE 5 MG TABLET PO ×2 (08:55→17:07)
[2022-03-25] MEDS: FERROUS SULFATE 324 MG TABLET PO ×2 (08:55→17:07)
[2022-03-25] MEDS: ACIDOPHILUS/BULGARICUS CHEWABLE TABLET 1 TABLET PO ×2 (08:56→17:07)
[2022-03-25] MEDS: MONTELUKAST SODIUM 10 MG TABLET PO (08:56)
[2022-03-25] MEDS: carvediloL 6.25 MG TABLET PO ×2 (08:56→20:28)
[2022-03-25] MEDS: FOLIC ACID 1 MG TABLET PO (08:56)
[2022-03-25] MEDS: MAGNESIUM OXIDE 400 MG TABLET 800 MG PO (08:56)
[2022-03-25] MEDS: CYANOCOBALAMIN 1,000 MCG TABLET 2000 MCG PO (08:56)
[2022-03-25] MEDS: CHOLECALCIFEROL 1,000 UNITS TABLET 1000 UNITS PO (08:56)
[2022-03-25] MEDS: PANTOPRAZOLE 40 MG TABLET PO (08:56)
[2022-03-25] MEDS: ASCORBIC ACID 500 MG TABLET PO (08:56)
--- NOTE | 2022-03-25 09:30 | PCPTNOTE ---
Attempted PT re-eval, per RN, patient in too much pain to participate in therapy at this time. Will Follow.
--- NOTE | 2022-03-25 09:46 | WPDANESPN ---
Anes - Prog Note Post-Op Date/Time: 03/25/22 09:46 Cardiovascular status: normal Respiratory status: normal and other Airway patency: baseline Mental status: baseline Post-Op hydration status: normal Vital Signs: Last Vital Signs Temp 36.7 C 03/25/22 08:42 Pulse 61 03/25/22 08:42 Resp 16 03/25/22 08:42 BP 133/63 03/25/22 08:42 Pulse Ox 94 03/25/22 08:42 O2 Del Method Room Air 03/24/22 20:34 O2 Flow Rate 2 03/24/22 16:17 FiO2 21 03/23/22 22:50 Pain Score (VAS): 0 I/O: Intake & Output 03/24/22 03/25/22 03/25/22 23:59 07:59 15:59 Intake Total 910 420 100 Output Total 500 Balance 410 420 100 Laboratory Tests 03/25/22 05:27 03/25/22 05:27 03/22/22 03/25/22 03/25/22 13:59 05:27 05:27 WBC 12.5 H RBC 4.38 Hgb 12.7 Hct 40.0 MCV 91.3 MCH 29.0 MCHC 31.8 L RDW 15.7 H Plt Count 274 MPV 9.1 Sodium 132 L Potassium 4.3 Chloride 102 Carbon Dioxide 25 Anion Gap 5 L BUN 15 Creatinine 0.70 Estim Creat Clear Calc 70 Estimated GFR > 60 Glucose 107 Calcium 8.2 L Total Bilirubin 0.5 AST 161 H ALT 152 H Alkaline Phosphatase 333 H Total Protein 7.0 Albumin 3.0 L Hep B Core Total Ab Nonreactive Patient Feedback: Patient satisfied with anesthetic care.
--- NOTE | 2022-03-25 11:39 | PM.IMPN ---
Progress Note: A&P Assessment and Plan (1) Cholecystitis: Code(s): K81.9 - Cholecystitis, unspecified Status: Acute Assessment and Plan: Patient admitted on 03/20/2022 from outside hospital for complaints of abdominal pain. She was found have elevated liver enzymes. She underwent MRCP which showed intrahepatic and extrahepatic bile duct dilation with possible filling defect within the mid common bile duct. Right upper quadrant ultrasound showed gallbladder wall thickening. Patient's white count was 11.4 on admission and 8.9 prior to antibiotics. The outside hospital was in touch with tertiary care center and IV antibiotics were recommended. Patient was transferred to our hospital for GI evaluation. On admission, Eliquis was stopped. She was started on abx with Flagyl and Cipro. ERCP performed 03/23 showing normal esophagus, stomach and duodenum. There was some difficulty cannulating the bile duct but this was able to be performed. Bile duct was dilated. No definitive filling defects. Sphincterotomy was performed. Balloon sweep only removed small amount of sludge but no stones. Patient also had pancreatic stent placement and a sphincterotomy of the pancreatic sphincter. General surgery was consulted and she underwent a laparoscopic cholecystectomy 03/24/22. Pain poorly controlled. Will continue current pain medications except stopping the 4mg morphine dose. Appreciate General surgery input. WBC higher but felt stress response from surgery. Continue IV abx for now. (2) Choledocholithiasis: Code(s): K80.50 - Calculus of bile duct without cholangitis or cholecystitis without obstruction Status: Acute Assessment and Plan: Patient did not have obvious gallstones but did have sludge in the common bile duct which may have contributed to the abdominal pain and elevated LFTs. As above. (3) Acute hepatitis: Code(s): B17.9 - Acute viral hepatitis, unspecified Status: Acute Assessment and Plan: LFTs elevated on presentation to the outside hospital. LFTs repeated here showed improvement and are continuing to trend downward. Total bilirubin remains normal. Iron studies showing saturation 62% but ferritin is normal. Lipase remains normal. Hepatitis panel negative. [place] related to transient bile duct obstruction with improvement; may have passed a gallstone. Continue to follow. Appreciate GI input. (4) Generalized weakness: Code(s): R53.1 - Weakness Status: Acute Assessment and Plan: Likely due to acute issues above as well as overall physical deconditioning. Patient reports she has been nonambulatory since femur fracture in June. Appreciate PT and OT evaluation (5) Afib: Code(s): I48.91 - Unspecified atrial fibrillation Status: Chronic Assessment and Plan: Patient has a history of paroxysmal atrial fibrillation. EKG reviewed showing normal sinus rhythm and inferior T-wave inversion. Rate has been controlled, mildly bradycardic at times. Continue Coreg. Eliquis remains on hold. ApneaLink reviewed and was unremarkable few apneic episodes and stable heart rate. Resume Eliquis when okay with General Surgery. (6) Essential (primary) hypertension: Onset Date: 02/13/13 Code(s): I10 - Essential (primary) hypertension Status: Acute Assessment and Plan: Patient's blood pressure was reviewed on 03/25. Blood pressure better controlled today. Will continue current medications. (7) COPD (chronic obstructive pulmonary disease): Onset Date: 02/13/13 Code(s): J44.9 - Chronic obstructive pulmonary disease, unspecified Status: Acute Assessment and Plan: Lungs are clear to auscultation. Continue albuterol and Atrovent p.r.n. (8) Polymyalgia rheumatica: Onset Date: 02/13/13 Code(s): M35.3 - Polymyalgia rheumatica Status: Chronic Assessment and Plan: Patient wit
--- NOTE | 2022-03-25 16:13 | PM.PNGS ---
Progress Note: A&P Assessment and Plan (1) Cholecystitis: Code(s): K81.9 - Cholecystitis, unspecified Status: Acute Assessment and Plan: Advance diet as tolerated to a low fat diet. Continue oral analgesics for pain control. Encouraged increasing activity and try sitting in the chair when pain is controlled. (2) Choledocholithiasis: Code(s): K80.50 - Calculus of bile duct without cholangitis or cholecystitis without obstruction Status: Acute (3) Elevated liver enzymes: Code(s): R74.8 - Abnormal levels of other serum enzymes Status: Acute (4) Afib: Code(s): I48.91 - Unspecified atrial fibrillation Status: Chronic (5) Anticoagulant long-term use: Code(s): Z79.01 - medical terminologist (current) use of anticoagulants Status: Acute Assessment and Plan: Okay to resume Eliquis tomorrow. (6) Immobility: Code(s): Z74.09 - Other reduced mobility Status: Acute Plan I have discussed the patient's case and plan of care with Dr. Membreno. Subjective Subjective Date/Time Seen: 03/25/22 16:00 Post Op day: 1 (Laparoscopic cholecystectomy) Patient reports: tolerating liquids well, flatus and afebrile Interval history: Patient seen and examined. She reports upper abdominal pain near incisions. She had IV Morphine this morning that helped and she fell asleep after. Her nurse states she slept for hours and now he believes her pain is uncontrolled since she didn't have any pain medication for awhile. She reports poor appetite and has only tried clear liquids today. No nausea or vomiting. She has refused getting up to the chair today. Per nursing, she has only voided a very small amount today and they are going to get a bladder scan. Review of Systems Review of Systems: All systems reviewed & are unremarkable except as noted in HPI and below Exam Const: General: awake and uncomfortable (d/t abd pain) Nutritional Appearance: obese centrally obese Orientation/consciousness: patient oriented x3 GI: Inspection: non-distended, incision (dry and glue intact) and obesity GI Palp: Yes Soft to palpation, Yes Tenderness to palpation present (GI) (incisional) and No Guarding due to palpation present (GI) Auscultation: normal bowel sounds Neuro: General: no focal motor deficits Extrem: General: no calf tenderness and no edema Psych: Insight: Good insight present (Psych) Judgement: Good judgement present (Psych) Objective Data Vital Signs Vital Signs: Vital Signs - 24 hr 03/24/22 16:17 03/24/22 16:40 03/24/22 16:55 Temperature 97.4 F L 97.5 F L Pulse Rate 60 60 59 L Respiratory Rate 14 16 16 Blood Pressure 177/75 H 156/86 H 187/72 H Pulse Oximetry 99 99 100 Oxygen Delivery Nasal Cannula Oxygen Flow Rate 2 Fraction of Inspired Oxygen 03/24/22 17:36 03/24/22 18:45 03/24/22 20:34 Temperature 97.3 F L 97.7 F Pulse Rate 56 L 52 L Respiratory Rate 16 16 Blood Pressure 151/85 H 186/77 H Pulse Oximetry 100 98 93 Oxygen Delivery Room Air Oxygen Flow Rate Fraction of Inspired Oxygen 03/24/22 21:00 03/24/22 22:00 03/25/22 04:08 Temperature 97.5 F L 97.6 F Pulse Rate 56 L 56 L 64 Respiratory Rate 16 16 Blood Pressure 153/74 H 141/52 H Pulse Oximetry 94 94 Oxygen Delivery Oxygen Flow Rate Fraction of Inspired Oxygen 03/25/22 08:42 03/25/22 08:00 03/25/22 12:27 Temperature 98.0 F 98.7 F Pulse Rate 61 61 61 Respiratory Rate 16 16 18 Blood Pressure 133/63 133/79 Pulse Oximetry 94 94 96 Oxygen Delivery Room Air Oxygen Flow Rate Fraction of Inspired Oxygen 21 03/25/22 14:54 Temperature 98.8 F Pulse Rate 66 Respiratory Rate 16 Blood Pressure 141/51 H Pulse Oximetry 94 Oxygen Delivery Oxygen Flow Rate Fraction of Inspired Oxygen Intake/Output Intake/Output: Intake & Output 03/22/22 03/23/22 03/24/22 03/25/22 23:59 23:59 23:59 23:59 Intake Total 3000 2502 2310 620 Output Total 6
[2022-03-25] MEDS: SODIUM CHLORIDE 0.9% IV 1,000 ML 70 ML IV CONT (17:06)
[2022-03-25] MEDS: LOVASTATIN 20 MG TABLET 40 MG PO (17:07)
[2022-03-26] MEDS: HYDROcodone/acetaminophen (*CRX) 7.5-325 MG TABLET 1 TAB PO ×4 (00:38→15:57)
[2022-03-26] MEDS: CIPROFLOXACIN 400 MG/D5W 200ML 200 ML 200 MG IVPB ×2 (01:37→13:34)
[2022-03-26] MEDS: MORPHINE SULFATE (*CRX) 2 MG/ML INJ IV PUSH (03:16)
[2022-03-26 03:49] VITALS: O2SAT 96
[2022-03-26 04:35] VITALS: BP 125/53; PULSE 62; RESP 18; TEMP 36.7; O2SAT 93
[2022-03-26 05:42] LABS: Basophils Percent Auto 0.2 % (0.2-1.2); Eosinophils Absolute Auto 0.1 K/mm3 (0-0.3); Eosinophils Percent Auto 0.3 % (0-4.4); Hematocrit 35.6 % (37.0-47.0); Hemoglobin 11.7 g/dL (12.0-15.0); Immature Granulocyte Absolute 0.06 K/mm3 (0.00-0.031); Immature Granulocyte Percent A 0.4 % (0-0.5); Lymphocytes Absolute Auto 1.06 K/mm3 (0.9-3.2); Lymphocytes Percent Auto 7.4 % (18.3-44.2); Mean Corpuscular HGB Conc 32.9 g/dl (32-36); Mean Corpuscular Hemoglobin 29.4 pg (26-34); Mean Corpuscular Volume 89.4 fl (80-100); Mean Platelet Volume 9.1 fl (7.4-10.4); Monocytes Absolute Auto 1.2 K/mm3 (0.1-0.6); Neutrophils Absolute Auto 11.9 K/mm3 (1.3-6.7); Neutrophils Percent Auto 83.7 % (45.5-73.1); Platelet Count Result 261 k/mm3 (150-375); Red Blood Count 3.98 M/mm3 (4.2-5.4); Red Cell Distribution Width 15.7 % (11.5-14.5); White Blood Count 14.3 K/mm3 (4.5-10.0)
[2022-03-26] MEDS: metroNIDAZOLE 500 MG/ISO 100ML 500 MG/100 ML BAG 100 MG IVPB (05:44)
[2022-03-26 05:59] LABS: Alanine Aminotransferase 117 U/L (6-35); Albumin Level 2.9 g/dL (3.5-5.1); Alkaline Phosphatase 286 U/L (38-126); Anion Gap 4 mmol/L (8-16); Aspartate Amino Transferase 117 U/L (14-36); Bilirubin,Total 0.3 mg/dL (0.2-1.3); Blood Urea Nitrogen 18 mg/dL (7-17); Carbon Dioxide 27 mmol/L (22-30); Chloride 100 mmol/L (98-107); Estimated CRCL calculation 50 ml/min; Estimated Glomerular Filt Rate 54; Glucose 100 mg/dL (65-110); Potassium 4.3 mmol/L (3.4-5.0); Sodium 131 mmol/L (137-145)
[2022-03-26] MEDS: ACIDOPHILUS/BULGARICUS CHEWABLE TABLET 1 TABLET PO ×2 (09:05→17:39)
[2022-03-26] MEDS: MONTELUKAST SODIUM 10 MG TABLET PO (09:05)
[2022-03-26] MEDS: CYANOCOBALAMIN 1,000 MCG TABLET 2000 MCG PO (09:05)
[2022-03-26] MEDS: carvediloL 6.25 MG TABLET PO (09:05)
[2022-03-26] MEDS: MAGNESIUM OXIDE 400 MG TABLET 800 MG PO (09:06)
[2022-03-26] MEDS: predniSONE 5 MG TABLET PO ×2 (09:06→17:39)
[2022-03-26] MEDS: PANTOPRAZOLE 40 MG TABLET PO (09:06)
[2022-03-26] MEDS: CHOLECALCIFEROL 1,000 UNITS TABLET 1000 UNITS PO (09:06)
[2022-03-26] MEDS: FOLIC ACID 1 MG TABLET PO (09:06)
[2022-03-26] MEDS: ASCORBIC ACID 500 MG TABLET PO (09:06)
[2022-03-26] MEDS: FERROUS SULFATE 324 MG TABLET PO ×2 (09:06→17:39)
--- NOTE | 2022-03-26 11:42 | PM.PNGS ---
Progress Note: A&P Assessment and Plan (1) Cholecystitis: Code(s): K81.9 - Cholecystitis, unspecified Status: Acute Assessment and Plan: Continues to improve. Okay from a surgical standpoint to discharge back to the rehab facility when okay with other services. Follow-up with Dr. Membreno in two weeks. Continue low fat diet. (2) Choledocholithiasis: Code(s): K80.50 - Calculus of bile duct without cholangitis or cholecystitis without obstruction Status: Acute (3) Elevated liver enzymes: Code(s): R74.8 - Abnormal levels of other serum enzymes Status: Acute Assessment and Plan: Slowly trending down. (4) Afib: Code(s): I48.91 - Unspecified atrial fibrillation Status: Chronic (5) Anticoagulant long-term use: Code(s): Z79.01 - [facility] (current) use of anticoagulants Status: Acute Assessment and Plan: Okay to resume Eliquis today. (6) Immobility: Code(s): Z74.09 - Other reduced mobility Status: Acute Plan I have discussed the patient's case and plan of care with Dr. Membreno. Subjective Subjective Date/Time Seen: 03/26/22 11:42 Post Op day: 2 (laparoscopic cholecystectomy) Patient reports: feels better, pain is less, tolerating liquids well, flatus and afebrile Interval history: Patient seen this morning. She is feeling much better today and sitting up in the chair. Pain is better controlled on the [place]. No nausea or vomiting. She is eating more today. No other complaints at this time. Review of Systems Review of Systems: All systems reviewed & are unremarkable except as noted in HPI and below Exam Const: General: comfortable, no acute distress and awake Nutritional Appearance: obese centrally obese Orientation/consciousness: patient oriented x3 GI: Inspection: non-distended and incision (dry and glue intact) GI Palp: Yes Soft to palpation, Yes Tenderness to palpation present (GI) (incisional) and No Guarding due to palpation present (GI) Auscultation: normal bowel sounds Extrem: General: no calf tenderness and no edema Psych: Insight: Good insight present (Psych) Judgement: Good judgement present (Psych) Objective Data Vital Signs Vital Signs: Vital Signs - 24 hr 03/25/22 12:27 03/25/22 14:54 03/25/22 20:00 Temperature 98.7 F 98.8 F 97.8 F Pulse Rate 61 66 60 Respiratory Rate 18 16 19 Blood Pressure 133/79 141/51 H 136/51 L Pulse Oximetry 96 94 99 Oxygen Delivery 03/25/22 20:28 03/26/22 03:49 03/26/22 04:35 Temperature 98.1 F Pulse Rate 61 62 Respiratory Rate 18 Blood Pressure 125/53 L Pulse Oximetry 96 93 Oxygen Delivery Room Air 03/26/22 08:00 03/26/22 10:44 03/26/22 10:08 Temperature Pulse Rate Respiratory Rate Blood Pressure Pulse Oximetry Oxygen Delivery Room Air Room Air Room Air Intake/Output Intake/Output: Intake & Output 03/23/22 03/24/22 03/25/22 03/26/22 23:59 23:59 23:59 23:59 Intake Total 2502 2310 1140 120 Output Total 1650 1475 300 225 Balance 852 835 840 -105 Meds/Results Medications: Active Medications Generic Name Dose Route Start Last Admin Trade Name Freq PRN Reason Stop Dose Admin Acetaminophen 650 mg 03/22/22 05:01 03/23/22 00:02 Acetaminophen 325 Mg Tablet PO 650 mg Q6H PRN Administration Pain (Scale Score 1-3) Acetaminophen 500 mg 03/24/22 16:40 Acetaminophen 500 Mg Tablet PO Q6H PRN Mild Pain (1-3) or Fever Hydrocodone Bitart/Acetaminophen 1 tab 03/24/22 16:40 Hydrocodone/Acetaminophen (*Crx) 5-325 Mg Tablet PO Q4H PRN Pain Rated 4-6 Hydrocodone Bitart/Acetaminophen 1 tab 03/24/22 16:40 03/26/22 10:08 Hydrocodone/Acetaminophen (*Crx) 7.5-325 Mg Tablet PO 1 tab Q4H PRN Administration Pain Rated 7-10 Albuterol 2.5 mg 03/22/22 05:23 Albuterol Sulfate Neb 2.5 Mg/0.5 Ml Inh INHALATION Q6H PRN Shortness Of Breath Or Wheezin Apixab
--- NOTE | 2022-03-26 12:56 | PM.DS ---
DS: Admitting Diagnosis Discharge Date 03/26/22 Admitting Diagnosis Abd pain DS: Discharge Diagnosis Discharge Diagnosis (1) Cholecystitis: Code(s): K81.9 - Cholecystitis, unspecified Status: Acute (2) Choledocholithiasis: Code(s): K80.50 - Calculus of bile duct without cholangitis or cholecystitis without obstruction Status: Acute (3) Acute hepatitis: Code(s): B17.9 - Acute viral hepatitis, unspecified Status: Acute (4) Generalized weakness: Code(s): R53.1 - Weakness Status: Acute (5) Afib: Code(s): I48.91 - Unspecified atrial fibrillation Status: Chronic (6) Essential (primary) hypertension: Onset Date: 02/13/13 Code(s): I10 - Essential (primary) hypertension Status: Acute (7) COPD (chronic obstructive pulmonary disease): Onset Date: 02/13/13 Code(s): J44.9 - Chronic obstructive pulmonary disease, unspecified Status: Acute (8) Polymyalgia rheumatica: Onset Date: 02/13/13 Code(s): M35.3 - Polymyalgia rheumatica Status: Chronic (9) Parkinsons disease: Code(s): G20 - Parkinson's disease Status: Acute (10) JABIER (obstructive sleep apnea): Code(s): G47.33 - Obstructive sleep apnea (adult) (pediatric) Status: Chronic DS: Summary Hospital Course Reason for hospitalization: 76yo female with CHF, PMR on chronic steroids, JABIER, COPD, and pAFib transferred for abdominal pain. Please see H&P for details Hospital Course: Patient admitted on 03/20/2022 from outside hospital for complaints of abdominal pain. She was found have elevated liver enzymes. MRCP showed intrahepatic and extrahepatic bile duct dilation with possible filling defect within the mid common bile duct.? Right upper quadrant ultrasound showed gallbladder wall thickening. Patient's white count was 11.4 on admission and 8.9 prior to antibiotics. Patient was transferred to our hospital for GI evaluation.? On admission, Eliquis was stopped.? She was started on abx with Flagyl and Cipro. ERCP performed 03/23 showing normal esophagus, stomach and duodenum.? There was some difficulty cannulating the bile duct but this was able to be performed.? Bile duct was dilated.? No definitive filling defects.? Sphincterotomy was performed.? Balloon sweep only removed small amount of sludge but no stones.? Patient also had pancreatic stent placement and a sphincterotomy of the pancreatic sphincter.? General surgery was consulted and she underwent a laparoscopic cholecystectomy 03/24/22. Appreciate General surgery input. WBC higher but felt stress response from surgery. LFTs elevated on presentation to the outside hospital.? LFTs repeated here showed improvement and are continuing to trend downward. Total bilirubin remains normal. Iron studies showing saturation 62% but ferritin is normal.? Lipase normal.? Hepatitis panel negative. [place] elevated LFTs related to transient bile duct obstruction with improvement; may have passed a gallstone. Patient has generalized weakness likely due to acute issues as well as overall physical deconditioning.? Patient reports she has been nonambulatory since femur fracture in June. She worked with PT OT. Patient has a history of paroxysmal atrial fibrillation.? EKG reviewed showing normal sinus rhythm and left axis deviation.? We continued her Coreg.? Eliquis was held but resumed at discharge.? ApneaLink reviewed and was unremarkable with a few apneic episodes and stable heart rate. Patient with PMR and is on chronic steroid use for this.?We continued prednisone 5 mg BID.?Did not feel stress dose steroids were required. Discussed general surgery felt patient could be discharged back to rehab facility today. Will stop antibiotics. Continue low-fat diet. Patient will need a follow-up KUB to ensure that plastic pancreatic stent passes through. Patient follow-up with General surgery for routine postop care. Patient overall
[2022-03-26 14:00] VITALS: BP 146/85; PULSE 65; RESP 20; TEMP 36.7; O2SAT 97
[2022-03-26 14:56] LABS: Ceruloplasmin 32 mg/dL (18-53)
[2022-03-26 17:11] VITALS: O2SAT 96
[2022-03-26] MEDS: LOVASTATIN 20 MG TABLET 40 MG PO (17:39)
--- NOTE | 2022-04-02 07:57 | PC.NURSE ---
Ceruloplasmin WNL at 32. Hemochrom is negative. GB path shows cholelithiasis, chronic cholecystitis and cholesterolosis. Dr. Corbin aware of findings.
--- NOTE | 2022-04-06 10:47 | PC.NURSE ---
-AT is nml with PI*MM type. Dr. Shaquille ramos.
== END 2022-03-26 17:55 | DRG 418 ==
PROVIDERS: Internal Medicine; Internal Medicine Gastroenterology; Surgery; Admitting Provider Family Medicine; PCP Family Medicine; Visit Provider Physician Assistant
PROC: 0FC98ZZ Extirpation of Matter from Common Bile Duct, Via Natural or Artificial Opening Endoscopic (ICD-10-PCS; CPT 43260; principal; 2022-03-23 16:00)
PROC: 0FT44ZZ Resection of Gallbladder, Percutaneous Endoscopic Approach (ICD-10-PCS; CPT 47562; principal; 2022-03-24 14:30)
DX: K80.40 Calculus of bile duct with cholecystitis, unspecified, without obstruction (principal); I50.30 Unspecified diastolic (congestive) heart failure; B17.9 Acute viral hepatitis, unspecified; J44.9 Chronic obstructive pulmonary disease, unspecified; M35.3 Polymyalgia rheumatica; Z66 Do not resuscitate; K21.9 Gastro-esophageal reflux disease without esophagitis; E78.5 Hyperlipidemia, unspecified; F32.A Depression, unspecified; E55.9 Vitamin D deficiency, unspecified; F17.210 Nicotine dependence, cigarettes, uncomplicated; R53.1 Weakness; G20 Parkinson's disease; Z79.01 Long term (current) use of anticoagulants; Z79.899 Other long term (current) drug therapy; Z74.09 Other reduced mobility; G47.33 Obstructive sleep apnea (adult) (pediatric); I48.0 Paroxysmal atrial fibrillation; I11.0 Hypertensive heart disease with heart failure
CPT/HCPCS: 36415; 74329; 80048; 80053; 80076; 81256; 82104; 82140; 82390; 82607; 82728; 82746; 83540; 83550; 83690; 83735; 84100; 84443; 85025; 85027; 85610; 85730; 86038; 86140; 86704; 86705; 86706; 86709; 86803; 86850; 86900; 86901; 87340; 88304; 93005; 94762; 96361; 96374; 97110; 97161; 97164; 97165; 97530; 97535; A9270; C2625; G0378; J0330; J0744; J1100; J1170; J2001; J2270; J2310; J2405; J2704; J2710; J3010; J7030; J7120; J7512